=== PATIENT | male | born 1990 | race Caucasian/White ===

== ENCOUNTER 2016-06-15 20:12 | Emergency (ER) | payer SELFPAY ==
[~2016-06-15] VITALS: Ht 170.2 cm; Wt 58.6 kg
[~2016-06-15 20:12] MED LIST: IBUP-1050 PO; OXYC1TAB3 PO; SERT50TA PO
[2016-06-15 20:16] VITALS: TEMP 37.1; Ht 170.2 cm; Wt 58.6 kg
[2016-06-15] MEDS ORDERED: LORAZEPAM 2 MG/ML 1 ML VIAL IV STA (20:34)
[2016-06-15] MEDS ORDERED: KETOROLAC TROMETHAMINE 30 MG/ML VIAL IV STA (20:34)
[2016-06-15 21:06] LABS: BASO % 0.3 %; BASO ABS # 0.04 K/uL (0-0.2); EOS % 1.4 %; HEMATOCRIT 39.1 % (42-52); IG% 0.3 %; LYMPH % 19.7 %; LYMPH ABS # 2.37 K/uL (1.2-3.4); MEAN CELL VOLUME 69.8 fL (80-100); MEAN CORPUSCULAR HEMOGLOBIN 23.6 pg (25-34); MEAN CORPUSCULAR HGB CONC 33.8 g/dl (32-36); MEAN PLATELET VOLUME 8.5 fL (7.4-10.4); MONO % 8.3 %; PLATELET COUNT 364 K/uL (130-400); WHITE BLOOD COUNT 12.01 K/uL (4.8-10.8)
[2016-06-15 21:25] LABS: BUN/CREATININE RATIO 37.1 (10-20); CALCIUM 9.1 mg/dl (8.5-10.1); CREATININE 0.72 mg/dl (0.60-1.40); POTASSIUM 3.5 mmol/L (3.5-5.1)
[2016-06-15] MEDS ORDERED: SODIUM CHLORIDE 0.9% 1000ML 1,000 ML IV STA (21:27)
[2016-06-15 21:54] LABS: COMPLETE YES; MICROCYTOSIS PRESENT; POLYCHROMASIA 1+
--- NOTE | 2016-06-15 22:21 | DIAGNOSTIC IMAGING REPORT ---
MRI LUMBAR SPINE W/O CONTRAST CLINICAL HISTORY: Low back pain with hyperreflexia. TECHNIQUE: Sagittal and axial T1, T2 and STIR images were obtained. COMPARISON STUDY: No previous studies for comparison. OBSERVATIONS: The vertebral bodies and posterior elements appear intact. There is no abnormal bony signal present to suggest a marrow replacement process. There is minimal edema involving the anterior superior L5 endplate likely on a degenerative basis L1-2: No disc protrusions or extrusions. No evidence of spinal canal or neural foraminal compromise. L2-3: No disc protrusions or extrusions. No evidence of spinal canal or neural foraminal compromise. L3-4: No disc protrusions or extrusions. No evidence of spinal canal or neural foraminal compromise. L4-5: No disc protrusions or extrusions. No evidence of spinal canal or neural foraminal compromise. L5-S1: No disc protrusions or extrusions. No evidence of spinal canal or neural foraminal compromise. The conus medullaris and cauda equina appear normal. IMPRESSION: No disc herniations identified. No evidence of spinal or foraminal stenosis. Electronically signed by: Catarino Martinez M.D. 06/15/2016 10:20 PM Dictated Date/Time: 06/15/2016 10:17 PM
[2016-06-15 22:25] VITALS: BP 120/63; PULSE 87; O2SAT 97
[2016-06-15] MEDS ORDERED: CYCL10TA6 PO (22:38)
--- NOTE | 2016-06-15 22:39 | EMERGENCY ROOM VISIT NOTE ---
History First contact with patient: 20:21 Chief Complaint: BACK PAIN Stated Complaint: BACK PAIN History of Present Illness The patient is a 25 year old male who presents to the Emergency Room with complaints of right right-sided low back pain which drops into the floor at times. The patient states that he has had intermittent back pain since he sustained a crushing injury to his body when he was 17 years of age. The patient was seen here on May 11 for the same symptoms. The patient states that his symptoms never improved. The patient denies any pain radiating down his legs. The patient denies any loss of bowel or bladder control. The patient denies any urinary symptoms of frequency, urgency or dysuria. Review of Systems 10 system review was performed and was negative unless stated otherwise history of present illness. Past Medical/Surgical History Medical Problems: (1) No significant past medical history Surgical Problems: (1) No significant past surgical history Family History FH: cancer FH: heart disease FH: hypertension Social History Smoking Status: Never Smoker Alcohol Use: occasionally Drug Use: none Marital Status: in relationship Housing Status: lives with significant other Occupation Status: employed Current/Historical Medications Scheduled Sertraline HCl (Sertraline HCl), 50 MG PO DAILY Scheduled PRN Ibuprofen (Advil), 600-800 MG PO Q8 PRN for Pain Allergies Coded Allergies: Sulfa Drugs (Verified Allergy, Unknown, Hives and swelling., 06/15/16) Reported by PT. Physical Exam Vital Signs Date Time Temp Pulse Resp B/P Pulse Ox O2 Delivery O2 Flow Rate FiO2 06/15/16 22:25 87 18 120/63 97 Room Air 06/15/16 20:16 37.1 91 20 117/63 98 Room Air Physical Exam PHYSICAL EXAM: Vital Signs normal: Reviewed Nurse's notes and agree. GENERAL: 25-year-old white male appears very uncomfortable secondary to back pain. MENTAL STATUS: Alert and oriented 3. LUNGS: Clear to auscultation without wheezes rales or rhonchi. CARDIAC: Regular rate and rhythm without murmur. LUMBAR SPINE: No gross bony abnormality noted. Patient is nontender to palpation over the spinous processes. He is tender to palpation over the right paravertebral region, left side nontender. He has full range of motion of the lumbar spine with pain elicited with flexion, extension and right lateral bending. Muscle strength is 5 out of 5 bilateral lower extremities and symmetrical. NEURO: Patient is able to heel and toe walk without difficulty. Patient's bilateral patellar reflexes are 4+ with severe hyperreflexia.. Sensation is intact to pinprick bilateral lower extremities. Negative straight leg raise bilaterally. Medical Decision & Procedures ER Provider Diagnostic Interpretation: MRI LUMBAR SPINE W/O CONTRAST CLINICAL HISTORY: Low back pain with hyperreflexia. TECHNIQUE: Sagittal and axial T1, T2 and STIR images were obtained. COMPARISON STUDY: No previous studies for comparison. OBSERVATIONS: The vertebral bodies and posterior elements appear intact. There is no abnormal bony signal present to suggest a marrow replacement process. There is minimal edema involving the anterior superior L5 endplate likely on a degenerative basis L1-2: No disc protrusions or extrusions. No evidence of spinal canal or neural foraminal compromise. L2-3: No disc protrusions or extrusions. No evidence of spinal canal or neural foraminal compromise. L3-4: No disc protrusions or extrusions. No evidence of spinal canal or neural foraminal compromise. L4-5: No disc protrusions or extrusions. No evidence of spinal canal or neural foraminal compromise. L5-S1: No disc protrusions or extrusions. No evidence of spinal canal or neural foraminal compromise. The conus medullaris and cauda equina appear normal. IMPRESSION: No disc herniations identified. No evidence of spinal or foraminal stenosis. Electronically signed by: Catarino Martinez M.D. 06/15/2016 10:20 PM Laboratory Results 06/15/16 20:53 Red Blood Count 5.60, Mean Corpuscular Volume 69.8, Mean Corpuscular Hemoglobin 23.6, Mean Corpuscular Hemoglobin Concent 33.8, Mean Platelet Volume 8.5, Neutrophils (%) (Auto) 70.0, Lymphocytes (%) (Auto) 19.7, Monocytes (%) (Auto) 8.3, Eosinophils (%) (Auto) 1.4, Basophils (%) (Auto) 0.3, Neutrophils # (Auto) 8.39, Lymphocytes # (Auto) 2.37, Monocytes # (Auto) 1.00, Eosinophils # (Auto) 0.17, Basophils # (Auto) 0.04 06/15/16 20:53 Test 06/15/16 20:53 White Blood Count 12.01 K/uL (4.8-10.8) Red Blood Count 5.60 M/uL (4.7-6.1) Hemoglobin 13.2 g/dL (14.0-18.0) Hematocrit 39.1 % (42-52) Mean Corpuscular Volume 69.8 fL (80-100) Mean Corpuscular Hemoglobin 23.6 pg (25-34) Mean Corpuscular Hemoglobin Concent 33.8 g/dl (32-36) Platelet Count 364 K/uL (130-400) Mean Platelet Volume 8.5 fL (7.4-10.4) Neutrophils (%) (Auto) 70.0 % Lymphocytes (%) (Auto) 19.7 % Monocytes (%) (Auto) 8.3 % Eosinophils (%) (Auto) 1.4 % Basophils (%) (Auto) 0.3 % Neutrophils # (Auto) 8.39 K/uL (1.4-6.5) Lymphocytes # (Auto) 2.37 K/uL (1.2-3.4) Monocytes # (Auto) 1.00 K/uL (0.11-0.59) Eosinophils # (Auto) 0.17 K/uL (0-0.5) Basophils # (Auto) 0.04 K/uL (0-0.2) RDW Standard Deviation 39.0 fL (36.4-46.3) RDW Coefficient of Variation 15.3 % (11.5-14.5) Immature Granulocyte % (Auto) 0.3 % Immature Granulocyte # (Auto) 0.04 K/uL (0.00-0.02) Polychromasia 1+ Microcytosis PRESENT Erythrocyte Sedimentation Rate 73 mm/hr (0-14) Anion Gap 12.0 mmol/L (3-11) Est Creatinine Clear Calc Drug Dose 128.9 ml/min Estimated GFR () 149.2 Estimated GFR (Non- 128.7 BUN/Creatinine Ratio 37.1 (10-20) Calcium Level 9.1 mg/dl (8.5-10.1) Medications Administered Medications (Trade) Dose Ordered Sig/Barrett Route Start Time Stop Time Status Last Admin Dose Admin Lorazepam (Ativan Inj) 1 mg NOW STAT IV 06/15/16 20:34 06/15/16 20:38 DC 06/15/16 21:08 1 MG Ketorolac Tromethamine 30 mg 30 mg NOW STAT IV 06/15/16 20:34 06/15/16 20:38 DC 06/15/16 21:08 30 MG Sodium Chloride (Nss 1000ml) 1,000 ml @ 999 mls/hr Q1H1M STAT IV 06/15/16 21:27 06/15/16 22:27 DC 06/15/16 21:27 999 MLS/HR ED Course The patient was evaluated. The patient's EMR was reviewed. The patient had x- rays performed on May 11 without any acute findings. As there were no additional injuries I did not re-x-ray the patient's back. IV access was obtained. CBC and differential, renal profile and sedimentation rate was ordered. The patient was given Ativan 1 mg IV and Toradol 30 mg IV for pain and muscle spasms. The patient's labs are reviewed.. His BUN was elevated at 27 Patient's white count was slightly elevated at 12,000. The patient's hemoglobin and hematocrit were low. BUN was elevated at 27 therefore he was given 1 L normal saline wide-open. The patient was reevaluated was feeling better after receiving the Ativan and Toradol. His sedimentation rate was elevated at 72. An MRI of the lumbar spine was ordered and interpreted by the radiologist as above without any acute findings. The patient was informed of all findings and discharged home in stable condition with a Flexeril home pack. Medical Decision Differential diagnosis include spinal cord lesion, disc herniation, muscle spasm , kidney stone Impression Primary Impression: Spasm of back muscles Additional Impressions: Anemia, Mild dehydration Departure Information Dispostion Home / Self-Care Condition GOOD Prescriptions Cyclobenzaprine Hcl (FLEXERIL) 10 Mg Tab 10 MG PO TID for Muscle Spasms, #21 TAB Prov: Victorina Jones PA-C 06/15/16 Referrals Gosia Hay M.D. (MEDICAL) (PCP) Forms HOME CARE DOCUMENTATION FORM, IMPORTANT VISIT INFORMATION Patient Instructions A Signature Page, [employer] Additional Instructions Avoid heavy lifting as much as possible until symptoms have resolved. Follow proper lifting technique. Ibuprofen 600 mg every 6 hours with food for pain. Take Flexeril every 8 hours as needed[address] Do not drive while taking the Flexeril. Push fluids. Follow up with your family doctor for further evaluation of your anemia. If your symptoms worsen, return to ER.
[2016-06-15] MEDS ORDERED: FLEXERIL HOME PACK 10 MG VIAL PO ONE (22:45)
== END 2016-06-15 22:46 | disposition home or self-care (01) ==
LOC: C.EDB 20:12 → C.EDD 22:46
DX: M62.830 Muscle spasm of back (principal); E86.0 Dehydration; D64.9 Anemia, unspecified; Z79.899 Other long term (current) drug therapy; Z88.2 Allergy status to sulfonamides; Z80.9 Family history of malignant neoplasm, unspecified; Z82.49 Family history of ischemic heart disease and other diseases of the circulatory system

== ENCOUNTER 2016-12-26 19:23 | Emergency (ER) | payer SELFPAY ==
[~2016-12-26] VITALS: Ht 170.2 cm; Wt 59.6 kg
[~2016-12-26 19:23] MED LIST changes: -OXYC1TAB3 PO; -SERT50TA PO
[2016-12-26 19:31] VITALS: TEMP 36.7; Ht 170.2 cm; Wt 59.6 kg
[2016-12-26] MEDS ORDERED: ZLF/50 PO (20:39)
[2016-12-26] MEDS ORDERED: AMOX875T PO (20:43)
[2016-12-26] MEDS ORDERED: AMOXICILLIN/CLAVULANATE TAB 875 MG TAB PO ONE (20:45)
--- NOTE | 2016-12-26 20:45 | EMERGENCY ROOM VISIT NOTE ---
History First contact with patient: 19:44 Chief Complaint: INFECTION Stated Complaint: SORE ON BOTTOM Nursing Triage Summary: unable to assess states cyst on right butt cheek History of Present Illness The patient is a 26 year old male who presents to the Emergency Room with complaints of rectal pain. The patient states that he was on vacation last week and had diarrhea for several days. He states that he has had diarrhea before due to stress and felt like this was the cause. There was no blood in the stools. He had no vomiting. Diarrhea has since resolved, but the patient states that he has had some pain/pressure when he has bowel movements or wipes. He tried hydrocortisone cream without relief. He denies any history of rectal abscesses or hemorrhoids. He rates his discomfort an 8/10. Review of Systems A complete 10 point review of systems was reviewed with the patient with pertinent positives and negatives as per history of present illness. All else were negative. Past Medical/Surgical History Medical Problems: (1) No significant past medical history Surgical Problems: (1) No significant past surgical history Family History FH: cancer FH: heart disease FH: hypertension Social History Smoking Status: Never Smoker Alcohol Use: occasionally Drug Use: none Marital Status: in relationship Housing Status: lives with significant other Occupation Status: employed Current/Historical Medications Scheduled Amoxicillin & Pot Clavulanate (Augmentin 875-125 mg), 1 TAB PO BID Sertraline HCl (Sertraline HCl), 50 MG PO DAILY Allergies Coded Allergies: Sulfa Drugs (Verified Allergy, Unknown, Hives and swelling., 06/15/16) Reported by PT. Physical Exam Vital Signs Date Time Temp Pulse Resp B/P (MAP) Pulse Ox O2 Delivery O2 Flow Rate FiO2 12/26/16 21:10 77 18 127/78 99 12/26/16 19:31 36.7 88 18 134/67 97 Room Air Physical Exam VITALS: Vitals are noted on the nurse's note and reviewed by myself. Vital signs stable. GENERAL: This is a 26-year-old male, in no acute distress, nondiaphoretic, well- developed well-nourished. HEART: Regular rate and rhythm without murmurs gallops or rubs. LUNGS: Clear to auscultation bilaterally without wheezes, rales or rhonchi. ABDOMEN: Soft, nontender to palpation. RECTAL: No hemorrhoids noted. There is tenderness to palpation and mild erythema of the left perirectal area. There is no induration or evidence of abscess. NEURO: Patient was alert and oriented to person place and time. Medical Decision & Procedures Medications Administered Medications (Trade) Dose Ordered Sig/Barrett Route Start Time Stop Time Status Last Admin Dose Admin Amoxicillin/ Clavulanate Potassium (Augmentin Tab) 1,750 mg UD ONCE PO 12/26/16 20:45 12/26/16 20:46 DC 12/26/16 20:54 1,750 MG Medical Decision Differential diagnosis includes anal fissure, hemorrhoid, perirectal abscess, among others. The patient was evaluated as above. There is no evidence of perirectal abscess or hemorrhoid at this time. However, the patient does have some irritation and I'm concerned that he could be developing an infection. He will be placed on Augmentin and was instructed to observe the area closely and return here if the symptoms worsen. Otherwise, he should follow-up with his primary care provider. He verbalized understanding of my assessment and treatment plan was discharged home in good condition. Blood Pressure Screening: Patient was found to have a slightly elevated blood pressure due to circumstances. I do not believe that the patient requires hypertension monitoring. Medication reconciliation: I attest that I have personally reviewed the patient 's current medication list. Impression Primary Impression: Rectal pain Departure Information Dispostion Home / Self-Care Condition GOOD Prescriptions Amoxicillin & Pot Clavulanate (Augmentin 875-125 mg) 1 Tab Tab 1 TAB PO BID for 10 Days, #20 TAB Prov: Ekta Granger ., PAOLA 12/26/16 Referrals Gosia Hay M.D. (MEDICAL) (PCP) Patient Instructions My [facility] Additional Instructions You were prescribed Augmentin to be taken twice daily for a total of 10 days. This is an antibiotic. All antibiotics have the potential to cause diarrhea. Stop this medication and contact a medical provider if you were to develop any significant adverse side effects including: wheezing, shortness of breath, passing out, vomiting, or a diffuse rash. Always take antibiotics as directed and COMPLETE the ENTIRE course regardless of the improvement of your symptoms. You should begin taking a probiotic to prevent diarrhea. For pain control, you can use the following [id number] medicines (if >12 yo): - Regular strength (325mg/tab) Tylenol (acetaminophen) 2 tabs every 4-6 hours as needed. Do not exceed 12 tablets in a 24 hour period. Avoid taking more than 4 grams (4000 mg) of Tylenol per day. This includes any other sources of acetaminophen you may take on a regular basis. - Regular strength (200 mg/tab) Advil (ibuprofen) 1-2 tabs every 4-6 hours as needed. Do not exceed a dose of 3200 mg per day. Follow-up with your primary care provider this week for a recheck. Return to the emergency department with worsening swelling, redness, fevers or any other new/concerning symptoms.
[2016-12-26 21:10] VITALS: BP 127/78; PULSE 77; O2SAT 99
== END 2016-12-26 20:50 | disposition home or self-care (01) ==
LOC: C.EDB 19:24 → C.EDD 20:50
DX: K62.89 Other specified diseases of anus and rectum (principal); Z82.49 Family history of ischemic heart disease and other diseases of the circulatory system

== ENCOUNTER 2017-05-03 15:44 | Emergency (ER) | payer SELFPAY ==
[~2017-05-03] VITALS: Ht 170.2 cm; Wt 58.2 kg
[2017-05-03 15:48] VITALS: TEMP 36.7; Ht 170.2 cm; Wt 58.2 kg
[2017-05-03] MEDS ORDERED: SODIUM CHLORIDE 0.9% 1000ML 1,000 ML IV STA (16:17)
--- NOTE | 2017-05-03 16:26 | EMERGENCY ROOM VISIT NOTE ---
History Report prepared by Chio: Pavan Pérez Under the Supervision of: Dr. Tad Chou M.D. First contact with patient: 16:15 Chief Complaint: DIARRHEA Stated Complaint: HAS A ANAL FISTULA- UPCOMING SURG.. WEAK, DIARRHEA Nursing Triage Summary: pt reports weakness x1 week had fever 2 days ago. diarrhea since last night History of Present Illness The patient is a 26 year old male who presents to the Emergency Room with complaints of diarrhea and low back pain. The patient reports he has had worsening diarrhea for the past few days in the setting of 2 weeks of diarrhea and endorses low grade fevers and body aches. The patient reports no resolution of diarrhea, thus prompting this visit. The patient reports of a similar episode 2 weeks ago and was evaluated for generalized weakness and diarrhea. He has a history of a anal fistula and is scheduled for surgery next week. He recently stopped antibiotics (Augmentin and Flagyl) which were recently prescribed for his fistula because he felt his diarrhea had increased with this. The patient self-administered 2 immodium with some improvement. He endorses fevers, chills, decreased PO intake, and blood in his stool. He denies abdominal pain. Of note, he reports a family history of colitis but he has never himself been diagnosed with IBD. Source of History: patient Onset: 2 weeks ago Position: back (low back), other (rectum) Quality: ache Timing: constant Associated Symptoms: + fevers, + chills, + back pain, + diarrhea, + weakness , No nausea, No vomiting, No abdominal pain Review of Systems See HPI for pertinent positives and negatives. A total of ten systems were reviewed and were otherwise negative. Past Medical & Surgical Medical Problems: (1) No significant past medical history Surgical Problems: (1) No significant past surgical history Family History FH: cancer FH: heart disease FH: hypertension Social History Smoking Status: Never Smoker Alcohol Use: occasionally Drug Use: none Marital Status: in relationship Housing Status: lives with significant other Occupation Status: employed Current/Historical Medications Scheduled Prednisone (Prednisone), 1 TAB PO DAILY Durable Medical Equipment [Stool] Allergies Coded Allergies: Sulfa Drugs (Verified Allergy, Unknown, Hives and swelling., 04/16/17) Reported by PT. Physical Exam Vital Signs Date Time Temp Pulse Resp B/P (MAP) Pulse Ox O2 Delivery O2 Flow Rate FiO2 05/03/17 20:44 102 132/69 99 05/03/17 18:38 105 20 124/69 97 Room Air 05/03/17 16:46 105 05/03/17 16:44 101 24 126/59 99 Room Air 05/03/17 15:48 36.7 105 18 120/67 98 Room Air Physical Exam GENERAL: Awake, alert, well-appearing, in no distress HENT: Normocephalic, atraumatic. Oropharynx unremarkable. EYES: Normal conjunctiva. Sclera non-icteric. NECK: Supple. No nuchal rigidity. FROM. No JVD. RESPIRATORY: Clear to auscultation. CARDIAC: Regular rate, normal rhythm. Extremities warm and well perfused. Pulses equal. ABDOMEN: Soft, non-distended. No tenderness to palpation. No rebound or guarding. No masses. RECTAL: Anal fistula at the 5 o'clock position with mild tenderness. Brown mucousy stool with scant blood. Guaiac positive. MUSCULOSKELETAL: Chest examination reveals no tenderness. The back is symmetrical on inspection without obvious abnormality. There is no CVA tenderness to palpation. No joint edema. LOWER EXTREMITIES: Calves are equal size bilaterally and non-tender. No edema. No discoloration. NEURO: Normal sensorium. No sensory or motor deficits noted. SKIN: No rash or jaundice noted. Medical Decision & Procedures ER Provider Diagnostic Interpretation: Radiology results as stated below per my review and radiologist interpretation: CT ABD/PELVIS IV CONTRAST ONLY CLINICAL HISTORY: Abdominal pain and diarrhea COMPARISON STUDY: None. TECHNIQUE: Following the IV administration of 116 mL of Optiray-320, CT scan of the abdomen and pelvis was performed from the lung bases to the proximal femurs. Images are reviewed in the axial, sagittal, and coronal planes. IV contrast was administered without complication. A dose lowering technique was utilized adhering to the principles of ALARA. CT DOSE: 254.93 mGy.cm FINDINGS: Lower chest: There are minimal dependent basilar atelectatic changes Liver: The contrast-enhanced liver is normal in size, contour, and attenuation. There is no intrahepatic biliary ductal dilatation. The hepatic veins and portal veins are patent. Gallbladder: Unremarkable. Spleen: Normal in size and attenuation. Pancreas: Unremarkable. Adrenal glands: Unremarkable. Kidneys: There is symmetric renal cortical enhancement. The kidneys are normal in size without hydronephrosis. Bowel: Evaluation the bowel is limited given the lack of oral contrast and the paucity of intra-abdominal fat. There are no transition zones indicate bowel obstruction. There is no evidence of acute diverticulitis. The appendix is difficult to visualize. There are no findings to indicate acute appendicitis. There is suspected mild cecal and rectal wall thickening. This may indicate a colitis. There is formed fecal material within nondilated pelvic small bowel loops. Peritoneum: There is no intraperitoneal free air or abdominal ascites. Vasculature: The abdominal aorta is normal in course and caliber. Adenopathy: None. Pelvic viscera: The bladder, and pelvic viscera are unremarkable. Skeletal structures: There are SI joint erosive changes consistent with a sacroiliitis. This has an association with inflammatory bowel disease. IMPRESSION: 1. No evidence of bowel obstruction. No evidence of free air 2. Limited evaluation of the bowel given the paucity of abdominal fat and the absence of oral contrast 3. Suspected bowel wall thickening of the cecum and rectum, consistent with a colitis 4. Sacroiliitis. It should be noted this has an association with inflammatory bowel disease. Electronically signed by: Catarino Martinez M.D. 05/03/2017 6:27 PM Laboratory Results 05/03/17 16:40 Red Blood Count 5.93, Mean Corpuscular Volume 69.1, Mean Corpuscular Hemoglobin 22.6, Mean Corpuscular Hemoglobin Concent 32.7, Mean Platelet Volume 8.3, Neutrophils (%) (Auto) 65.1, Lymphocytes (%) (Auto) 19.6, Monocytes (%) (Auto) 13.9, Eosinophils (%) (Auto) 1.1, Basophils (%) (Auto) 0.2, Neutrophils # (Auto ) 5.42, Lymphocytes # (Auto) 1.63, Monocytes # (Auto) 1.16, Eosinophils # (Auto ) 0.09, Basophils # (Auto) 0.02 05/03/17 16:40 Test 05/03/17 16:40 05/03/17 18:36 White Blood Count 8.33 K/uL (4.8-10.8) Red Blood Count 5.93 M/uL (4.7-6.1) Hemoglobin 13.4 g/dL (14.0-18.0) Hematocrit 41.0 % (42-52) Mean Corpuscular Volume 69.1 fL (80-100) Mean Corpuscular Hemoglobin 22.6 pg (25-34) Mean Corpuscular Hemoglobin Concent 32.7 g/dl (32-36) Platelet Count 399 K/uL (130-400) Mean Platelet Volume 8.3 fL (7.4-10.4) Neutrophils (%) (Auto) 65.1 % Lymphocytes (%) (Auto) 19.6 % Monocytes (%) (Auto) 13.9 % Eosinophils (%) (Auto) 1.1 % Basophils (%) (Auto) 0.2 % Neutrophils # (Auto) 5.42 K/uL (1.4-6.5) Lymphocytes # (Auto) 1.63 K/uL (1.2-3.4) Monocytes # (Auto) 1.16 K/uL (0.11-0.59) Eosinophils # (Auto) 0.09 K/uL (0-0.5) Basophils # (Auto) 0.02 K/uL (0-0.2) RDW Standard Deviation 45.2 fL (36.4-46.3) RDW Coefficient of Variation 18.0 % (11.5-14.5) Immature Granulocyte % (Auto) 0.1 % Immature Granulocyte # (Auto) 0.01 K/uL (0.00-0.02) Microcytosis PRESENT Spherocytes 1+ Ovalocytes 1+ Erythrocyte Sedimentation Rate > 90 mm/hr (0-14) Anion Gap 6.0 mmol/L (3-11) Est Creatinine Clear Calc Drug Dose 111.4 ml/min Estimated GFR () 140.5 Estimated GFR (Non- 121.2 BUN/Creatinine Ratio 21.4 (10-20) Lactic Acid Level 1.2 mmol/L (0.4-2.0) Calcium Level 9.4 mg/dl (8.5-10.1) Total Bilirubin 0.3 mg/dl (0.2-1) Direct Bilirubin 0.1 mg/dl (0-0.2) Aspartate Amino Transf (AST/SGOT) 13 U/L (15-37) Alanine Aminotransferase (ALT/SGPT) 16 U/L (12-78) Alkaline Phosphatase 76 U/L (45-117) C-Reactive Protein 13.40 mg/dl (0-0.29) Total Protein 8.7 gm/dl (6.4-8.2) Albumin 3.9 gm/dl (3.4-5.0) Lipase 109 U/L (73-393) Urine Color YELLOW Urine Appearance CLEAR (CLEAR) Urine pH 5.0 (4.5-7.5) Urine Specific [place] 1.024 (1.000-1.030) Urine Protein NEG (NEG) Urine Glucose (UA) NEG (NEG) Urine Ketones 1+ (NEG) Urine Occult Blood NEG (NEG) Urine Nitrite NEG (NEG) Urine Bilirubin NEG (NEG) Urine Urobilinogen NEG (NEG) Urine Leukocyte Esterase NEG (NEG) Laboratory results reviewed by me Medications Administered Medications (Trade) Dose Ordered Sig/Barrett Route Start Time Stop Time Status Last Admin Dose Admin Sodium Chloride 1,000 ml @ 999 mls/hr Q1H1M STAT IV 05/03/17 16:17 05/03/17 17:17 DC 05/03/17 16:17 999 MLS/HR Prednisone (PredniSONE TAB) 20 mg NOW STAT PO 05/03/17 19:54 05/03/17 19:56 DC 05/03/17 20:04 20 MG ED Course 1615: The patient was evaluated in room B6. A complete history and physical exam was performed. 1617: Sodium Chloride 1 ml @ 999 mls/hr IV 1815: Optiray 320, 116 ml, IV 1934: I spoke with the patient and he has not been able to produce a bowel movement. 1946: I spoke with Dr. Silva who agreed that patient should be given Prednisone as well as cups for his stool. He will call the office tomorrow about a follow up appointment for 05/07/2017. 1953: Prednisone Tab 20 mg PO. 2023: I reevaluated the patient. Discussed results and discharge instructions: The patient verbalized understanding and agreement. The patient is ready for discharge. Medical Decision I reviewed the patient's past medical history, medications, and the nursing notes as described above. The patient's presentation and history were concerning for C.Diff colitis, IBD, and gastroenteritis, diverticulitis The patient is a 26 y/o gentleman who presents to the ED with worsening diarrhea over the past few days in the setting of 2 weeks of diarrhea per HPI. On arrival the patient is well appearing, NAD, AFVSS. Rectal exam with brown stool with mucous and scant blood, guaiac positive. Abd soft, NT/ND. Labs notable for ESR > 90 and CRP 13.4 . Labs otherwise unremarkable with WBC wnl and HCT 40s. CT showing colitis with associated sacroiliitis c/w with IBD. Case was d/w GI, Dr. Silva, who recommends beginning Prednisone 20 mg daily and to provide specimen cups so patient may deliver stool studies when he is able to have a BM. Patient will call office tomorrow to arrange appointment for Sunday. Patient will also update his surgeon regarding recent findings. Findings and plan for follow-up reviewed with patient. Patient agreeable and d/c'd per discharge instructions. Consults Time Called: 1946 Consulting Physician: Dr. Silva - GI Returned Call: [address] Silva who agreed that the patient should be given Prednisone as well as cups for his stool. He will call the office tomorrow about a follow up appointment for 05/07/2017. Impression Primary Impression: Colitis Additional Impression: Sacroiliitis Scribe Attestation The scribe's documentation has been prepared under my direction and personally reviewed by me in its entirety. I confirm that the note above accurately reflects all work, treatment, procedures, and medical decision making performed by me. Departure Information Dispostion Home / Self-Care Prescriptions [Stool] No Conflict Check Stool Studies: 1. Cdiff toxin B Gene, stool 2. Stool Culture 3. Gram Stain, stool 4. Giardia Ag, stool 5. Gryptosporidium Ag, stool 6. Salmonella, stool 7. Shigella, stool 8. Ecoli O157:H7, stool 9. Ova and Parasites, stool Prov: Tad Chou M.D. 05/03/17 Prednisone (Prednisone) 20 Mg Tab 1 TAB PO DAILY for 14 Days, #14 TAB Prov: Tad Chou M.D. 05/03/17 Referrals No Doctor, Assigned (PCP) Shaheen Silva M.D. Patient Instructions ED Colitis Ulcerative, ED Sacroiliitis, My [facility] Additional Instructions Please follow up with Gastroenterology, Dr. Silva, by calling the office tomorrow to arrange an appointment for Sunday. You were found to have a colitis and sacroiliitis, which together are highly suspicious for ulcerative colitis. Otherwise, your exam, CT scan, and lab results did not show signs of an emergent condition at this time. Prednisone as directed. You were given specimen containers, that if you have a bowel movement, you should bring to the laboratory or to emergency department to send for testing as specified on your prescription. Return to the emergency department for worsening symptoms as described in the accompanying instructions. Problem Qualifiers
[2017-05-03 16:53] LABS: BASO % 0.2 %; BASO ABS # 0.02 K/uL (0-0.2); EOS % 1.1 %; IG% 0.1 %; LYMPH % 19.6 %; LYMPH ABS # 1.63 K/uL (1.2-3.4); MEAN CELL VOLUME 69.1 fL (80-100); MEAN CORPUSCULAR HEMOGLOBIN 22.6 pg (25-34); MEAN CORPUSCULAR HGB CONC 32.7 g/dl (32-36); MEAN PLATELET VOLUME 8.3 fL (7.4-10.4); MONO % 13.9 %; NEUT % 65.1 %; PLATELET COUNT 399 K/uL (130-400); RED BLOOD COUNT 5.93 M/uL (4.7-6.1); WHITE BLOOD COUNT 8.33 K/uL (4.8-10.8)
[2017-05-03 17:12] LABS: BUN/CREATININE RATIO 21.4 (10-20); C-REACTIVE PROTEIN 13.4 mg/dl (0-0.29); CALCIUM 9.4 mg/dl (8.5-10.1); CREATININE 0.82 mg/dl (0.60-1.40)
[2017-05-03 17:38] LABS: COMPLETE YES; MICROCYTOSIS PRESENT; OVALOCYTES 1+; SPHEROCYTE 1+
[2017-05-03] MEDS ORDERED: OPTIRAY 320 IV PRN (18:15)
--- NOTE | 2017-05-03 18:28 | DIAGNOSTIC IMAGING REPORT ---
CT ABD/PELVIS IV CONTRAST ONLY CLINICAL HISTORY: Abdominal pain and diarrhea COMPARISON STUDY: None. TECHNIQUE: Following the IV administration of 116 mL of Optiray-320, CT scan of the abdomen and pelvis was performed from the lung bases to the proximal femurs. Images are reviewed in the axial, sagittal, and coronal planes. IV contrast was administered without complication. A dose lowering technique was utilized adhering to the principles of ALARA. CT DOSE: 254.93 mGy.cm FINDINGS: Lower chest: There are minimal dependent basilar atelectatic changes Liver: The contrast-enhanced liver is normal in size, contour, and attenuation. There is no intrahepatic biliary ductal dilatation. The hepatic veins and portal veins are patent. Gallbladder: Unremarkable. Spleen: Normal in size and attenuation. Pancreas: Unremarkable. Adrenal glands: Unremarkable. Kidneys: There is symmetric renal cortical enhancement. The kidneys are normal in size without hydronephrosis. Bowel: Evaluation the bowel is limited given the lack of oral contrast and the paucity of intra-abdominal fat. There are no transition zones indicate bowel obstruction. There is no evidence of acute diverticulitis. The appendix is difficult to visualize. There are no findings to indicate acute appendicitis. There is suspected mild cecal and rectal wall thickening. This may indicate a colitis. There is formed fecal material within nondilated pelvic small bowel loops. Peritoneum: There is no intraperitoneal free air or abdominal ascites. Vasculature: The abdominal aorta is normal in course and caliber. Adenopathy: None. Pelvic viscera: The bladder, and pelvic viscera are unremarkable. Skeletal structures: There are SI joint erosive changes consistent with a sacroiliitis. This has an association with inflammatory bowel disease. IMPRESSION: 1. No evidence of bowel obstruction. No evidence of free air 2. Limited evaluation of the bowel given the paucity of abdominal fat and the absence of oral contrast 3. Suspected bowel wall thickening of the cecum and rectum, consistent with a colitis 4. Sacroiliitis. It should be noted this has an association with inflammatory bowel disease. Electronically signed by: Catarino Martinez M.D. 05/03/2017 6:27 PM Dictated Date/Time: 05/03/2017 6:19 PM
[2017-05-03 18:58] LABS: URINE APPEARANCE CLEAR (CLEAR); URINE BILIRUBIN NEG (NEG); URINE COLOR YELLOW; URINE NITRITE NEG (NEG); URINE SPECIFIC GRAVITY 1.024 (1.000-1.030); UROBILINOGEN NEG (NEG); ZZUR CULT IF INDIC CLEAN CATCH NO
[2017-05-03 19:01] LABS: MANUAL MICROSCOPIC REQUIRED? NO; REVIEW REQ? NO
[2017-05-03] MEDS ORDERED: PRED20TA PO (20:07)
[2017-05-03] MEDS ORDERED: Stool (20:16)
[2017-05-03 20:44] VITALS: BP 132/69; PULSE 102; O2SAT 99
== END 2017-05-03 20:45 | disposition home or self-care (01) ==
LOC: C.EDB 15:46
DX: K52.9 Noninfective gastroenteritis and colitis, unspecified (principal); M46.1 Sacroiliitis, not elsewhere classified; Z82.49 Family history of ischemic heart disease and other diseases of the circulatory system

== ENCOUNTER → 2017-05-04 | Outpatient (CLI) | payer OTHER ==
[~2017-05-04] MED LIST changes: -IBUP-1050 PO; +LCTX PO; +NF1094 PO; +PRED20TA PO; +Stool
[2017-05-09 09:35] LABS: O&P SOURCE OTHER-STOOL
== END | disposition home or self-care (01) ==
LOC: C.LAB 11:07
PROVIDERS: ATTEND Emergency Medicine
DX: R19.7 Diarrhea, unspecified (principal)

== ENCOUNTER 2017-05-05 15:46 | Inpatient (IN) | payer OTHER ==
[~2017-05-05] VITALS: Ht 170.2 cm; Wt 57.0 kg
[~2017-05-05 15:46] MED LIST changes: -LCTX PO; -NF1094 PO
[2017-05-05] MEDS ORDERED: ONDANSETRON INJ 2 MG/ML 2 ML VIAL IV STA (16:06)
[2017-05-05] MEDS ORDERED: VANCOMYCIN HCL 250 MG/5 ML SOLN PO STA (16:06)
[2017-05-05] MEDS ORDERED: MoRPHine SULFATE 4 MG/ML 1 ML CARP\\VIAL IV PRN (16:15)
[2017-05-05] MEDS ORDERED: SODIUM CHLORIDE 0.9% 1000ML 1,000 ML IV ONE (16:15)
[2017-05-05 16:37] LABS: BASO % 0.2 %; BASO ABS # 0.02 K/uL (0-0.2); EOS % 0.7 %; HEMATOCRIT 37.5 % (42-52); IG% 0.2 %; LYMPH % 23.2 %; LYMPH ABS # 2.06 K/uL (1.2-3.4); MEAN CELL VOLUME 68.6 fL (80-100); MEAN CORPUSCULAR HEMOGLOBIN 22.3 pg (25-34); MEAN CORPUSCULAR HGB CONC 32.5 g/dl (32-36); MEAN PLATELET VOLUME 8.2 fL (7.4-10.4); MONO % 16.1 %; NEUT % 59.6 %; PLATELET COUNT 351 K/uL (130-400); RED BLOOD COUNT 5.47 M/uL (4.7-6.1); WHITE BLOOD COUNT 8.89 K/uL (4.8-10.8)
[2017-05-05 16:55] LABS: BUN/CREATININE RATIO 17.5 (10-20); CALCIUM 9.3 mg/dl (8.5-10.1); CREATININE 0.84 mg/dl (0.60-1.40); MAGNESIUM 1.9 mg/dl (1.8-2.4); POTASSIUM 3.8 mmol/L (3.5-5.1)
[2017-05-05 16:58] LABS: ALB/GLOB RATIO 0.7 (0.9-2)
[2017-05-05 17:02] LABS: COMPLETE YES; MICROCYTOSIS PRESENT
[2017-05-05 17:32] LABS: LYME DISEASE AB IGG NEG (NEG); LYME DISEASE AB IGM NEG (NEG)
--- NOTE | 2017-05-05 17:58 | DIAGNOSTIC IMAGING REPORT ---
L KNEE 3 VIEWS CLINICAL HISTORY: Left knee swelling. Possible joint effusion. COMPARISON: Left knee radiographs May 30, 2014. FINDINGS: Alignment of the left knee is anatomic. There is a moderate left knee joint effusion without lipohemarthrosis. No fracture or suspicious lesion is present. IMPRESSION: 1. Moderate-sized left knee joint effusion. 2. No osseous abnormality of the left knee. Electronically signed by: Hayder Pugh M.D. 05/05/2017 5:56 PM Dictated Date/Time: 05/05/2017 5:55 PM
--- NOTE | 2017-05-05 17:59 | DIAGNOSTIC IMAGING REPORT ---
PA CHEST RADIOGRAPH AND UPRIGHT AND SUPINE AP RADIOGRAPHS OF THE ABDOMEN CLINICAL HISTORY: Abdominal pain. C. Difficile colitis. Possible megacolon. COMPARISON STUDY: CT of the abdomen and pelvis May 03, 2017 and chest radiograph June 28, 2013. FINDINGS: Lung volumes are normal. Lungs are clear. No pneumothorax or pleural effusion is present. Pulmonary vascularity is normal. Cardiomediastinal silhouette is normal. There is no free air. The bowel gas pattern is normal. No colonic distention is identified by radiography. IMPRESSION: 1. No free air or evidence of bowel obstruction. No colonic dilatation by radiography. 2. No acute cardiopulmonary findings. Electronically signed by: Hayder Pugh M.D. 05/05/2017 5:58 PM Dictated Date/Time: 05/05/2017 5:56 PM
--- NOTE | 2017-05-05 18:08 | EMERGENCY ROOM VISIT NOTE ---
History First contact with patient: 15:54 Chief Complaint: WEAKNESS Stated Complaint: HAS COLITIS, SYMPTOMS ARE GETTING WORSE, FEVER Nursing Triage Summary: Patient presents to triage via wheelchair, states "I have a fistula on my bottom that is draining pus. I am supposed to have surgery on May 11. I can't get out of bed. My legs, knees and back hurt. I have a lot of neck pain, I think I slept on it wrong. I feel drained. I was here two nights ago and was diagnosed with colitis. They gave me prednisone." Patient is C.Diff positive! History of Present Illness The patient is a 26 year old male who presents to the Emergency Room with complaints of worsening body aches, abdominal pain and diarrhea over the last 2 weeks. The patient was seen in the emergency department 2 days ago with a main complaint of diarrhea and back pain. He was diagnosed with possible colitis. He was started on prednisone. The patient was unable to provide a stool sample at that time. He brought 1 to the hospital yesterday. It is positive for C. difficile colitis. The patient reports no appetite. He feels extremely weak. He has joint pain in his back, hips and particularly his left knee. His fever was 101F at home. He denies any nausea. He was on antibiotics recently, Augmentin and Flagyl, for upcoming surgery on his anal fistula. Review of Systems 10 system review performed and negative unless noted in HPI or below Past Medical/Surgical History Medical Problems: (1) C. difficile colitis (2) No significant past medical history Surgical Problems: (1) No significant past surgical history Family History FH: cancer FH: heart disease FH: hypertension Social History Smoking Status: Never Smoker Alcohol Use: occasionally Drug Use: none Marital Status: in relationship Housing Status: lives with significant other Occupation Status: employed Current/Historical Medications Scheduled Prednisone (Prednisone), 1 TAB PO DAILY Allergies Coded Allergies: Sulfa Drugs (Verified Allergy, Unknown, Hives and swelling., 05/05/17) Reported by PT. Physical Exam Vital Signs Date Time Temp Pulse Resp B/P (MAP) Pulse Ox O2 Delivery O2 Flow Rate FiO2 05/05/17 18:49 99 14 125/68 97 Room Air 05/05/17 17:47 97 16 122/64 98 Room Air 05/05/17 16:56 98 16 131/75 95 Room Air 05/05/17 15:48 37.2 103 18 123/75 97 Room Air Physical Exam GENERAL: 26-year-old male, acutely ill in appearance SKIN: The skin was without rashes, erythema, edema, or bruising. HEAD: Normocephalic atraumatic. MOUTH: Mucous membranes NECK: Supple without nuchal rigidity. Cervical spine is nontender. No JVD. HEART: , Regular rhythm without murmurs gallops or rubs. LUNGS: Clear to auscultation bilaterally without wheezes, rales or rhonchi. No accessory muscle use. ABDOMEN: Positive bowel sounds x 4.Soft, tenderness to palpation in the epigastric region without organomegaly. No guarding or rebound tenderness. MUSCULOSKELETAL: Left knee effusion noted. Full flexion and extension of the knee. No warmth or erythema appreciated. Strength 5/5 throughout. NEURO: Patient was alert and oriented to person place and time. Normal sensation to touch. No focal neurological deficits. Medical Decision & Procedures ER Provider Diagnostic Interpretation: knee xray L KNEE 3 VIEWS CLINICAL HISTORY: Left knee swelling. Possible joint effusion. COMPARISON: Left knee radiographs May 30, 2014. FINDINGS: Alignment of the left knee is anatomic. There is a moderate left knee joint effusion without lipohemarthrosis. No fracture or suspicious lesion is present. IMPRESSION: 1. Moderate-sized left knee joint effusion. 2. No osseous abnormality of the left knee. Electronically signed by: Hayder Pugh M.D. 05/05/2017 5:56 PM Dictated Date/Time: 05/05/2017 5:55 PM The status of this report is Signed. Draft = Not yet reviewed or approved by Radiologist. Signed = Reviewed and approved by Radiologist. Abdominal x-rays IMPRESSION: 1. No free air or evidence of bowel obstruction. No colonic dilatation by radiography. 2. No acute cardiopulmonary findings. Electronically signed by: Hayder Pugh M.D. 05/05/2017 5:58 PM Dictated Date/Time: 05/05/2017 5:56 PM The status of this report is Signed. Draft = Not yet reviewed or approved by Radiologist. Signed = Reviewed and approved by Radiologist. Laboratory Results 05/05/17 16:20 Red Blood Count 5.47, Mean Corpuscular Volume 68.6, Mean Corpuscular Hemoglobin 22.3, Mean Corpuscular Hemoglobin Concent 32.5, Mean Platelet Volume 8.2, Neutrophils (%) (Auto) 59.6, Lymphocytes (%) (Auto) 23.2, Monocytes (%) (Auto) 16.1, Eosinophils (%) (Auto) 0.7, Basophils (%) (Auto) 0.2, Neutrophils # (Auto ) 5.30, Lymphocytes # (Auto) 2.06, Monocytes # (Auto) 1.43, Eosinophils # (Auto ) 0.06, Basophils # (Auto) 0.02 05/05/17 16:20 Test 05/05/17 16:20 White Blood Count 8.89 K/uL (4.8-10.8) Red Blood Count 5.47 M/uL (4.7-6.1) Hemoglobin 12.2 g/dL (14.0-18.0) Hematocrit 37.5 % (42-52) Mean Corpuscular Volume 68.6 fL (80-100) Mean Corpuscular Hemoglobin 22.3 pg (25-34) Mean Corpuscular Hemoglobin Concent 32.5 g/dl (32-36) Platelet Count 351 K/uL (130-400) Mean Platelet Volume 8.2 fL (7.4-10.4) Neutrophils (%) (Auto) 59.6 % Lymphocytes (%) (Auto) 23.2 % Monocytes (%) (Auto) 16.1 % Eosinophils (%) (Auto) 0.7 % Basophils (%) (Auto) 0.2 % Neutrophils # (Auto) 5.30 K/uL (1.4-6.5) Lymphocytes # (Auto) 2.06 K/uL (1.2-3.4) Monocytes # (Auto) 1.43 K/uL (0.11-0.59) Eosinophils # (Auto) 0.06 K/uL (0-0.5) Basophils # (Auto) 0.02 K/uL (0-0.2) RDW Standard Deviation 44.6 fL (36.4-46.3) RDW Coefficient of Variation 17.9 % (11.5-14.5) Immature Granulocyte % (Auto) 0.2 % Immature Granulocyte # (Auto) 0.02 K/uL (0.00-0.02) Microcytosis PRESENT Anion Gap 10.0 mmol/L (3-11) Est Creatinine Clear Calc Drug Dose 106.5 ml/min Estimated GFR () 139.1 Estimated GFR (Non- 120.0 BUN/Creatinine Ratio 17.5 (10-20) Calcium Level 9.3 mg/dl (8.5-10.1) Magnesium Level 1.9 mg/dl (1.8-2.4) Total Bilirubin 0.4 mg/dl (0.2-1) Aspartate Amino Transf (AST/SGOT) 9 U/L (15-37) Alanine Aminotransferase (ALT/SGPT) 14 U/L (12-78) Alkaline Phosphatase 67 U/L (45-117) Total Protein 8.4 gm/dl (6.4-8.2) Albumin 3.4 gm/dl (3.4-5.0) Globulin 5.0 gm/dl (2.5-4.0) Albumin/Globulin Ratio 0.7 (0.9-2) Lyme Disease IgG Antibody NEG (NEG) Lyme Disease IgM Antibody NEG (NEG) Medications Administered Medications (Trade) Dose Ordered Sig/Barrett Route Start Time Stop Time Status Last Admin Dose Admin Sodium Chloride 1,000 ml @ 999 mls/hr Q1H1M ONCE IV 05/05/17 16:15 05/05/17 17:15 DC 05/05/17 16:49 999 MLS/HR Morphine Sulfate (MoRPHine SULFATE INJ) 4 mg Q1H PRN IV 05/05/17 16:15 05/05/17 21:03 DC 05/05/17 16:47 4 MG Ondansetron HCl (Zofran Inj) 4 mg NOW STAT IV 05/05/17 16:06 05/05/17 16:10 DC 05/05/17 16:47 4 MG Vancomycin HCl (Vancomycin Oral Soln) 250 mg ONE STAT PO 05/05/17 16:06 05/05/17 16:10 DC 05/05/17 16:48 250 MG Acetaminophen (Tylenol Tab) 650 mg Q4H PRN PO 05/05/17 20:00 06/04/17 19:59 05/05/17 21:40 650 MG ED Course Patient was seen and examined Vital signs including blood pressure were reviewed medications list was verified with patient Labs were obtained, and a saline lock was established He was medicated with morphine and Zofran. He was hydrated with 1 L of normal saline. He was given 1 dose of vancomycin by mouth 250 mg I reevaluated the patient. He had minimal symptomatically. We discussed his results. He voiced understanding. The case was also discussed with my supervising physician, who is in agreement with my plan I [facility] who is in agreement to keep the patient for further workup and treatment Medical Decision Differential diagnosis: C. difficile colitis, inflammatory bowel disease, viral GI illness, Lyme disease this patient is a 26-year-old male that returns to the emergency department with complaints of significant weakness, diarrhea and fever. The patient was in the emergency department 2 days ago. A CAT scan was performed consistent with colitis. The patient also has a confirmation of C. difficile colitis. The patient was started on oral vancomycin. He does appear extremely dehydrated. Even though his labs are unremarkable, I do not feel like he will do well if he is discharged home. I believe he likely needs IV hydration, continued antibiotics and pain medication. The patient and the patient's family are in agreement with this plan. Of note, the patient also was complaining of intermittent swelling of the left knee due to an injury over a year ago. He did have some swelling on exam. X- rays confirmed a knee effusion. I ordered a Lyme screen, which was negative. I did not suspect a septic joint and it was not giving him a significant amount of pain; therefore, I did not perform an arthrocentesis. This information was passed along to the hospitalist group. This chart was completed in part utilizing [employer] Speech Voice Recognition software. Attempts were made to minimize the grammatical errors, random word insertions, pronoun errors and incomplete sentences. Any formal questions or concerns about the content, text or information contained within the body of this dictation should be directly addressed to the provider for clarification. Consults Consulting Physician: Caridad rodrigezist Impression Primary Impression: C. difficile colitis Departure Information Referrals Gosia Hay M.D. (MEDICAL) (PCP) Patient Instructions [facility]
[2017-05-05] MEDS ORDERED: ONDANSETRON INJ 2 MG/ML 2 ML VIAL IV PRN (20:00)
[2017-05-05] MEDS ORDERED: ALUMINUM/MAGNESIUM/SIMETH (MAALOX MAX) 30 ML UDC PO PRN (20:00)
[2017-05-05] MEDS ORDERED: MAGNESIUM HYDROXIDE SUSP 30 ML UDC PO PRN (20:00)
[2017-05-05 20:48] VITALS: BP 130/72; PULSE 99; TEMP 37.6; O2SAT 98; Ht 170.2 cm; Wt 57.0 kg
[2017-05-05] MEDS: VANCOMYCIN HCL 250 MG/5 ML SOLN PO SCH (21:38)
[2017-05-05] MEDS: RASPBERRY SYRUP 5 ML UDP PO SCH (21:39)
[2017-05-05] MEDS: SODIUM CHLORIDE 0.9% 1000ML 1,000 ML IV SCH (21:39)
[2017-05-05] MEDS: ACETAMINOPHEN 325 MG TAB PO PRN (21:40)
--- NOTE | 2017-05-05 23:27 | History and Physical ---
History & Physical Date & Time of Service: May 05, 2017 at 22:54 Chief Complaint: C. Difficile Colitis Primary Care Physician: Gosia Hay M.D. (MEDICAL) History of Present Illness Source: patient, family, clinic records, hospital records This is a 26 year old male with a PMH of anal fistula presents with diarrhea. States that for the past month, he's had trouble with the fistula. Has seen general surgery and then was referred to colo-rectal surgery. Plan was for surgical intervention on May 11. He states that he was on both Augmentin and Flagyl for the fistula and stopped it about a week ago. He presented to [facility] for the diarrhea on 05/03. Had a CT done which showed colitis and sacroiliitis. He was sent home with prednisone with a possible diagnosis of inflammatory bowel disease. He came back to the next day to drop off a stool sample. This was tested and found to be positive for C. diff. He was told to come back to the ER. Continues to have watery diarrhea. Difficult keeping things down. No nausea/vomiting. Had some chills as well. No abdominal pain. Family History FH: cancer FH: heart disease FH: hypertension Social History Smoking Status: Never Smoker Drug Use: none Marital Status: in relationship Housing status: lives with family Occupational Status: employed Multi-Drug Resistant Organisms History of MDRO: No Allergies Coded Allergies: Sulfa Drugs (Verified Allergy, Unknown, Hives and swelling., 05/05/17) Reported by PT. Home Medications Scheduled Prednisone (Prednisone), 1 TAB PO DAILY Review of Systems Constitutional: + chills, No fever, No weakness Eyes: No worsening of vision ENT: No hearing loss Respiratory: No cough, No sputum, No shortness of breath Cardiovascular: No chest pain, No edema, No palpitations Abdomen: + diarrhea, No pain, No nausea, No vomiting, No constipation, No GI bleeding Musculoskeletal: + joint pain (chronic back pain), No muscle pain Genitourinary - Male: No hematuria, No dysuria, No urinary frequency, No urinary urgency Neurologic: No weakness, No numbness/tingling, No vertigo, No balance problems Psychiatric: No depression symptoms, No anxiety, No insomnia Endocrine: No fatigue Hematologic / Lymphatic: No abnormal bleeding/bruising Integumentary: No rash Allergic / Immunologic: No environmental allergies, No seasonal allergies Physical Exam Vital Signs Date Time Temp Pulse Resp B/P (MAP) Pulse Ox O2 Delivery O2 Flow Rate FiO2 05/05/17 20:36 93 16 122/70 97 05/05/17 18:49 99 14 125/68 97 Room Air 05/05/17 17:47 97 16 122/64 98 Room Air 05/05/17 16:56 98 16 131/75 95 Room Air 05/05/17 15:48 37.2 103 18 123/75 97 Room Air General Appearance: no apparent distress Head: normocephalic, atraumatic Respiratory/Chest: chest non-tender, lungs clear, normal breath sounds, no respiratory distress, no accessory muscle use Cardiovascular: regular rate, rhythm, no edema, no gallop, no JVD, no murmur, normal peripheral pulses Abdomen/GI: non tender, soft, + abnormal bowel sounds (hyperactive bowel sounds ) Back: + pertinent finding (+tenderness to palpation, lower back b/l) Extremities/Musculoskelatal: normal inspection, no calf tenderness, normal capillary refill, no pedal edema, normal range of motion Neurologic/Psych: no motor/sensory deficits, alert, normal mood/affect Skin: normal color Lymphatic: no adenopathy Diagnostics Laboratory Results Results Past 24 Hours Test 05/05/17 16:20 Range/Units White Blood Count 8.89 4.8-10.8 K/uL Red Blood Count 5.47 4.7-6.1 M/uL Hemoglobin 12.2 14.0-18.0 g/dL Hematocrit 37.5 42-52 % Mean Corpuscular Volume 68.6 80-100 fL Mean Corpuscular Hemoglobin 22.3 25-34 pg Mean Corpuscular Hemoglobin Concent 32.5 32-36 g/dl Platelet Count 351 130-400 K/uL Mean Platelet Volume 8.2 7.4-10.4 fL Neutrophils (%) (Auto) 59.6 % Lymphocytes (%) (Auto) 23.2 % Monocytes (%) (Auto) 16.1 % Eosinophils (%) (Auto) 0.7 % Basophils (%) (Auto) 0.2 % Neutrophils # (Auto) 5.30 1.4-6.5 K/uL Lymphocytes # (Auto) 2.06 1.2-3.4 K/uL Monocytes # (Auto) 1.43 0.11-0.59 K/uL Eosinophils # (Auto) 0.06 0-0.5 K/uL Basophils # (Auto) 0.02 0-0.2 K/uL RDW Standard Deviation 44.6 36.4-46.3 fL RDW Coefficient of Variation 17.9 11.5-14.5 % Immature Granulocyte % (Auto) 0.2 % Immature Granulocyte # (Auto) 0.02 0.00-0.02 K/uL Microcytosis PRESENT Sodium Level 136 136-145 mmol/L Potassium Level 3.8 3.5-5.1 mmol/L Chloride Level 99 98-107 mmol/L Carbon Dioxide Level 27 21-32 mmol/L Anion Gap 10.0 3-11 mmol/L Blood Urea Nitrogen 15 7-18 mg/dl Creatinine 0.84 0.60-1.40 mg/dl Est Creatinine Clear Calc Drug Dose 106.5 ml/min Estimated GFR () 139.1 Estimated GFR (Non- 120.0 BUN/Creatinine Ratio 17.5 10-20 Random Glucose 95 70-99 mg/dl Calcium Level 9.3 8.5-10.1 mg/dl Magnesium Level 1.9 1.8-2.4 mg/dl Total Bilirubin 0.4 0.2-1 mg/dl Aspartate Amino Transf (AST/SGOT) 9 15-37 U/L Alanine Aminotransferase (ALT/SGPT) 14 12-78 U/L Alkaline Phosphatase 67 45-117 U/L Total Protein 8.4 6.4-8.2 gm/dl Albumin 3.4 3.4-5.0 gm/dl Globulin 5.0 2.5-4.0 gm/dl Albumin/Globulin Ratio 0.7 0.9-2 Lyme Disease IgG Antibody NEG NEG Lyme Disease IgM Antibody NEG NEG Diagnostic Radiology L KNEE 3 VIEWS CLINICAL HISTORY: Left knee swelling. Possible joint effusion. COMPARISON: Left knee radiographs May 30, 2014. FINDINGS: Alignment of the left knee is anatomic. There is a moderate left knee joint effusion without lipohemarthrosis. No fracture or suspicious lesion is present. IMPRESSION: 1. Moderate-sized left knee joint effusion. 2. No osseous abnormality of the left knee. PA CHEST RADIOGRAPH AND UPRIGHT AND SUPINE AP RADIOGRAPHS OF THE ABDOMEN CLINICAL HISTORY: Abdominal pain. C. Difficile colitis. Possible megacolon. COMPARISON STUDY: CT of the abdomen and pelvis May 03, 2017 and chest radiograph June 28, 2013. FINDINGS: Lung volumes are normal. Lungs are clear. No pneumothorax or pleural effusion is present. Pulmonary vascularity is normal. Cardiomediastinal silhouette is normal. There is no free air. The bowel gas pattern is normal. No colonic distention is identified by radiography. IMPRESSION: 1. No free air or evidence of bowel obstruction. No colonic dilatation by radiography. 2. No acute cardiopulmonary findings. Impression Assessment and Plan This is a 26 year old male with a PMH of anal fistula presents with diarrhea C. Diff Colitis CT abdomen on 05/03 - colitis concern for inflammatory bowel disease secondary to fistula formation and sacroiliitis for now, we will start Vancomycin QID for C. diff consult GI for further input IVFs, full liquid, advance as tolerated Anal Fistula patient was to see colo-rectal surgery in [place] on May 11 Anemia unsure of the cause of anemia; patient has no bleeding, no blood in stool/urine L knee effusion possible trauma FULL CODE VTE Prophylaxis VTE Risk Assessment Done? Y/N: Yes Risk Level: Very Low Given or contraindicated: Treatment not indicated
[2017-05-06 00:25] VITALS: BP 128/74; PULSE 96; TEMP 37.1; O2SAT 98
[2017-05-06 05:53] LABS: HEMATOCRIT 35.2 % (42-52); MEAN CELL VOLUME 68.9 fL (80-100); MEAN CORPUSCULAR HEMOGLOBIN 22.7 pg (25-34); MEAN PLATELET VOLUME 7.9 fL (7.4-10.4); PLATELET COUNT 339 K/uL (130-400); RED BLOOD COUNT 5.11 M/uL (4.7-6.1); WHITE BLOOD COUNT 9.05 K/uL (4.8-10.8)
[2017-05-06 06:26] LABS: BLOOD UREA NITROGEN 13 mg/dl (7-18); BUN/CREATININE RATIO 18.4 (10-20); CALCIUM 8.4 mg/dl (8.5-10.1); CARBON DIOXIDE 26 mmol/L (21-32); CHLORIDE 101 mmol/L (98-107); CREATININE 0.68 mg/dl (0.60-1.40); GLUCOSE 88 mg/dl (70-99); SODIUM 134 mmol/L (136-145)
[2017-05-06 08:00] VITALS: O2SAT 98
[2017-05-06] MEDS: SODIUM CHLORIDE 0.9% 1000ML 1,000 ML IV SCH ×2 (08:08→18:06)
[2017-05-06] MEDS: RASPBERRY SYRUP 5 ML UDP PO SCH ×4 (08:09→20:04)
[2017-05-06 08:10] VITALS: BP 123/71; PULSE 88; TEMP 37.2; O2SAT 92
[2017-05-06] MEDS: VANCOMYCIN HCL 250 MG/5 ML SOLN PO SCH ×4 (08:17→20:04)
[2017-05-06] MEDS: ACETAMINOPHEN 325 MG TAB PO PRN ×2 (10:57→20:08)
--- NOTE | 2017-05-06 12:23 | GASTROINTESTINAL CONSULTATION ---
DATE OF CONSULTATION: 05/06/2017 CHIEF COMPLAINT: Abdominal discomfort. HISTORY OF PRESENT ILLNESS: The patient is a 26-year-old male, with a past medical history notable for an anorectal fistula, who presented to the Emergency Room after he was found to be C. diff positive. The patient reports that he has had several months of perirectal discomfort and was recently found to have an anorectal fistula. He is to have a fistulotomy performed early in May by Dr. Calvillo. The patient notes that he was placed onto a course of Augmentin in addition to ciprofloxacin that lasted for approximately one week. He notes that, over the last 2 weeks, he has developed worsening discomfort and then diarrhea. He did have a CT scan done several days ago which showed evidence of inflammatory changes in the left colon and cecum. The patient also notes having discomfort in the lower back and the left knee. PAST MEDICAL HISTORY: No chronic medical problems. OUTPATIENT MEDICATIONS: No chronic medications. SURGICAL HISTORY: No prior surgeries. FAMILY HISTORY: Mother with a history of ulcerative colitis status post subtotal colectomy in her early 20s. SOCIAL HISTORY: Nonsmoker. The patient denies alcohol abuse. The patient denies drug use. ALLERGIES: TO SULFA. REVIEW OF SYSTEMS: CONSTITUTIONAL: The patient with no fevers, no weakness. He denies chills today. EYES: No worsening vision. ENT: No difficulty swallowing. RESPIRATORY: No cough, no shortness of breath. CARDIOVASCULAR: No chest pain. GASTROINTESTINAL: Please see history of present illness. MUSCULOSKELETAL: Joint pain noted in the left knee. GENITOURINARY: No dysuria. NEUROLOGIC: No headache. PSYCHIATRIC: No depression. ENDOCRINE: No fatigue or polyuria. DERMATOLOGY: No rashes. PHYSICAL EXAMINATION: VITAL SIGNS: Temperature of 37.2, blood pressure is 123/71 and pulse ox 92% on room air. HEENT: No scleral icterus noted. No JVD noted. LUNGS: Clear to auscultation. ABDOMEN: The patient with mild left lower quadrant discomfort. No rebound or peritoneal signs. EXTREMITIES: No edema is noted. The patient with tenderness and swelling noted in the left knee. NEUROLOGIC: Cranial nerves are grossly intact. Motor grossly intact. LABORATORIES: White blood cell count 9.0, hemoglobin 11.6, hematocrit is 35.2 and platelet count is 339. Chemistry; sodium 134, potassium 4.0, BUN 13, creatinine 0.68, calcium 8.4, AST 9, ALT 14, alkaline phosphatase 67 and albumin of 3.4. The patient is reported as C. diff positive; this is not available for me to review. IMPRESSION: A 26-year-old male, recently diagnosed with clostridium difficile infection, on vancomycin therapy. The imaging study does seem somewhat concerning as he may have underlying inflammatory bowel disease. I would suggest that the patient continue on vancomycin. We will re-evaluate the patient to determine when the next best point for colonoscopy is. RECOMMENDATIONS: 1. Vancomycin 125 q.i.d. 2. Full liquid diet today. 3. We will determine the timing of colonoscopy pending course during hospital stay. Please call with any questions or concerns.
--- NOTE | 2017-05-06 14:28 | Progress Note ---
Medicine Progress Note Date & Time of Visit: May 06, 2017 at 14:11. Subjective Pt was seen and examined Lying in bed with no distress Pt said that the diarrhea slightly improve Continue to have left knee tenderness Denies any chest pain, palpitation, dizziness and SOB Objective Last 8 Hrs Date Time Temp Pulse Resp B/P (MAP) Pulse Ox O2 Delivery O2 Flow Rate FiO2 05/06/17 08:10 37.2 88 18 123/71 (88) 92 Room Air 05/06/17 08:00 98 Room Air Physical Exam: General- No acute distress Head- atraumatic Eyes- PERRL, EOMI ENT- oropharynx clear Neck- supple, no JVD Lungs- clear to auscultation Heart- regular rhythm; no murmur Abdomen- Hypoactive bowel sounds, soft, non tender Extremities- no calf tenderness, left knee swelling Neuro- alert, oriented x 3; PERRL, EOMI; no facial palsy Skin- warm & dry Laboratory Results: Last 24 Hours Test 05/05/17 16:20 05/06/17 05:39 White Blood Count 8.89 K/uL 9.05 K/uL Red Blood Count 5.47 M/uL 5.11 M/uL Hemoglobin 12.2 g/dL 11.6 g/dL Hematocrit 37.5 % 35.2 % Mean Corpuscular Volume 68.6 fL 68.9 fL Mean Corpuscular Hemoglobin 22.3 pg 22.7 pg Mean Corpuscular Hemoglobin Concent 32.5 g/dl 33.0 g/dl Platelet Count 351 K/uL 339 K/uL Mean Platelet Volume 8.2 fL 7.9 fL Neutrophils (%) (Auto) 59.6 % Lymphocytes (%) (Auto) 23.2 % Monocytes (%) (Auto) 16.1 % Eosinophils (%) (Auto) 0.7 % Basophils (%) (Auto) 0.2 % Neutrophils # (Auto) 5.30 K/uL Lymphocytes # (Auto) 2.06 K/uL Monocytes # (Auto) 1.43 K/uL Eosinophils # (Auto) 0.06 K/uL Basophils # (Auto) 0.02 K/uL RDW Standard Deviation 44.6 fL 45.2 fL RDW Coefficient of Variation 17.9 % 17.9 % Immature Granulocyte % (Auto) 0.2 % Immature Granulocyte # (Auto) 0.02 K/uL Microcytosis PRESENT Sodium Level 136 mmol/L 134 mmol/L Potassium Level 3.8 mmol/L 4.0 mmol/L Chloride Level 99 mmol/L 101 mmol/L Carbon Dioxide Level 27 mmol/L 26 mmol/L Anion Gap 10.0 mmol/L 7.0 mmol/L Blood Urea Nitrogen 15 mg/dl 13 mg/dl Creatinine 0.84 mg/dl 0.68 mg/dl Est Creatinine Clear Calc Drug Dose 106.5 ml/min 131.6 ml/min Estimated GFR () 139.1 > 150.0 Estimated GFR (Non- 120.0 130.9 BUN/Creatinine Ratio 17.5 18.4 Random Glucose 95 mg/dl 88 mg/dl Calcium Level 9.3 mg/dl 8.4 mg/dl Magnesium Level 1.9 mg/dl Total Bilirubin 0.4 mg/dl Aspartate Amino Transf (AST/SGOT) 9 U/L Alanine Aminotransferase (ALT/SGPT) 14 U/L Alkaline Phosphatase 67 U/L Total Protein 8.4 gm/dl Albumin 3.4 gm/dl Globulin 5.0 gm/dl Albumin/Globulin Ratio 0.7 Lyme Disease IgG Antibody NEG Lyme Disease IgM Antibody NEG Assessment & Plan C. Diff Colitis CT abdomen on 05/03 showed colitis and Sacroiliitis Diarrhea slightly improved Gastro on board Continue PO Vancomycin QID Continue full liquid diet, Continue IVF Will need a colonoscopy Anal Fistula Schedule for colo-rectal surgery in [place] on May 11 GI was planning to get the colonoscopy done before the surgery Anemia Hbg stable L knee effusion Denies any trauma or injury Xray of knee showed moderate-sized left knee joint effusion. Will consult ortho for possible knee aspiration FULL CODE Consultants: gastro Current Inpatient Medications: Current Inpatient Medications Medications (Trade) Dose Ordered Sig/Barrett Route Start Time Stop Time Status Last Admin Dose Admin Acetaminophen (Tylenol Tab) 650 mg Q4H PRN PO 05/05/17 20:00 06/04/17 19:59 05/06/17 10:57 650 MG Al Hydrox/Mg Hydrox/Simethicone (Maalox Max Susp) 15 ml Q4H PRN PO 05/05/17 20:00 06/04/17 19:59 Magnesium Hydroxide (Milk Of Magnesia Susp) 30 ml Q6H PRN PO 05/05/17 20:00 12/25/17 19:59 Ondansetron HCl (Zofran Inj) 4 mg Q6H PRN IV 05/05/17 20:00 06/04/17 19:59 Vancomycin HCl (Vancomycin Oral Soln) 250 mg QID PO 05/05/17 21:00 05/19/17 20:59 05/06/17 08:17 250 MG Sodium Chloride 1,000 ml @ 100 mls/hr Q10H IV 05/05/17 21:00 06/04/17 20:59 05/06/17 08:08 100 MLS/HR Raspberry (Raspberry Syrup 5ml Cup) 5 ml QID PO 05/05/17 21:00 05/19/17 20:59 05/06/17 08:09 5 ML
[2017-05-06 15:36] VITALS: BP 122/74; PULSE 92; TEMP 37.2; O2SAT 98
[2017-05-06] MEDS ORDERED: ETHYL CHLORIDE AER SPR 100 ML CAN EXT ONE (16:45)
[2017-05-06 17:40] LABS: SYNOVIAL FLUID APPEARANCE HAZY; SYNOVIAL FLUID COLOR YELLOW; SYNOVIAL FLUID MONONUC RELAT 8.4 %; SYNOVIAL FLUID POLYNUC RELAT 91.6 %
[2017-05-06 18:43] VITALS: BP 135/77; PULSE 102; TEMP 37.9; O2SAT 96
--- NOTE | 2017-05-06 19:43 | ORTHOPEDIC CONSULTATION ---
DATE OF CONSULTATION: 05/06/2017 HISTORY OF PRESENT ILLNESS: This is a 26-year-old gentleman seen at the request of Dr. Hudson Hutchison and Ramy Hay. The patient has had recent admission due to multiple colorectal issues, diarrhea and recent diagnosis of C. difficile colitis. The patient also began having left knee pain and swelling which began several days ago. He had no previous twisting injuries. No falls on the knee. No prior history of surgery to the left knee. He does chun and he has been in the [employer] recently. 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 He does not have any known tick exposures and no targeted lesions that he can recall. PAST MEDICAL HISTORY: Anal fistula, diarrhea, recent diagnosis of C. difficile colitis, recent nausea and vomiting. PAST SURGICAL HISTORY: No knee surgery. History of colonoscopy. ALLERGIES: SULFA DRUGS, HIVES AND SWELLING. MEDICATIONS: Prednisone 1 tablet daily. SOCIAL HISTORY: Denies tobacco or drug use. Drinks occasionally. He is . He has 2 children. 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 PHYSICAL EXAMINATION: GENERAL: This is a 26-year-old gentleman who is lying supine in his hospital room bed with his present. NEUROLOGIC: He is alert and oriented x3. Speech clear and fluent. Affect is appropriate. EXTREMITIES: Examination of the lower extremities demonstrates flexed position of the left knee. Skin is warm, dry and intact. There is no significant erythema or increased warmth to the left knee compared to the right. He has an obvious left knee effusion compared to the right knee. Left knee has tenderness to palpation which is diffuse. He does have some lateral joint line tenderness compared to the medial joint line. Range of motion is approximately 5-70 degrees of flexion with significant pain with flexion. There is pain posterior lateral aspect of the left knee with flexion. Dorsalis pedis and posterior tibial pulses are 2/4 bilaterally. No streaking, no hypervascularity of the left lower extremity compared to the right. Positive Audrey's test left knee. IMAGING STUDIES: Radiographs demonstrate no obvious fractures, dislocations or avulsions of the left knee. He has an obvious effusion of the left knee. No loose bodies present. IMPRESSION: 1. Left knee effusion, large. 2. Internal derangement of the left knee. 3. Left knee pain. RECOMMENDATIONS: 1. Aspiration of the left knee. 2. Elevation with limited weightbearing. 3. Ice p.r.n., pain medication as per medical service. N.p.o. after midnight pending aspiration studies. We will run aerobic, anaerobic, Gram stain on the aspirate with also specimen for cell count with manual differential, crystal analysis and Lyme titer. We will follow with you. PROCEDURE: After obtaining verbal consent, the patient's left knee was then sterilely prepped with Betadine and alcohol and then after use of ethyl chloride as a local refrigerant on the skin, an 18 gauge needle was then used to aspirate approximately 65 mL of yellowish thickened fluid from the left knee. Aspiration did give the patient some relief. Next, a sterile Band-Aid was placed and the specimens were sent for aerobic, anaerobic, Gram stain as well as cell count with manual differential, Lyme titer and assessment for crystals. The patient tolerated the procedure well. Further consultation to follow. Thank you for the opportunity to consult and the care for this patient.
[2017-05-07] VITALS (8 sets, daily range): BP systolic 116–131; BP diastolic 66–74; PULSE 78–102; TEMP 36.7–37.8; O2SAT 97–98
[2017-05-07] MEDS: SODIUM CHLORIDE 0.9% 1000ML 1,000 ML IV SCH ×2 (04:20→13:45)
[2017-05-07] MEDS: RASPBERRY SYRUP 5 ML UDP PO SCH ×4 (08:00→20:54)
[2017-05-07 09:19] LABS: BLOOD UREA NITROGEN 7 mg/dl (7-18); BUN/CREATININE RATIO 10.2 (10-20); CALCIUM 9.1 mg/dl (8.5-10.1); CARBON DIOXIDE 23 mmol/L (21-32); CHLORIDE 103 mmol/L (98-107); CREATININE 0.67 mg/dl (0.60-1.40); GLUCOSE 99 mg/dl (70-99); POTASSIUM 3.7 mmol/L (3.5-5.1); SODIUM 138 mmol/L (136-145)
[2017-05-07] MEDS: ACETAMINOPHEN 325 MG TAB PO PRN ×2 (11:39→21:00)
--- NOTE | 2017-05-07 13:27 | Progress Note ---
Medicine Progress Note Date & Time of Visit: May 07, 2017 at 13:06. Subjective Pt was seen and examined Lying in bed with no distress He was made NPO last night Pt said that he is hungry and would like to eat something He denies any abdominal pain He said that the diarrhea is slowing down Denies any chest pain, palpitation, dizziness and SOB Objective Last 8 Hrs Date Time Temp Pulse Resp B/P (MAP) Pulse Ox O2 Delivery O2 Flow Rate FiO2 05/07/17 08:15 37.5 100 16 123/66 (85) 98 Physical Exam: General- No acute distress Head- atraumatic Eyes- PERRL, EOMI ENT- oropharynx clear Neck- supple, no JVD Lungs- clear to auscultation Heart- regular rhythm; no murmur Abdomen- +BS, nontender Extremities- no calf tenderness, left knee swelling Neuro- alert, oriented x 3; PERRL, EOMI; no facial palsy Skin- warm & dry Laboratory Results: Last 24 Hours Test 05/06/17 16:45 05/07/17 08:39 Synovial Fluid Source KNEE Synovial Fluid Color YELLOW Synovial Fluid Appearance HAZY Synovial Fluid WBC 03322 /uL Synovial Fluid RBC < 3000 /uL Synovial Fluid Polynuclear WBCs % 91.6 % Synovial Fluid Mononuclear WBCs % 8.4 % Synovial Fluid Crystals Sodium Level 138 mmol/L Potassium Level 3.7 mmol/L Chloride Level 103 mmol/L Carbon Dioxide Level 23 mmol/L Anion Gap 12.0 mmol/L Blood Urea Nitrogen 7 mg/dl Creatinine 0.67 mg/dl Est Creatinine Clear Calc Drug Dose 133.5 ml/min Estimated GFR () > 150.0 Estimated GFR (Non- 131.7 BUN/Creatinine Ratio 10.2 Random Glucose 99 mg/dl Calcium Level 9.1 mg/dl Date/Time Source Procedure Growth Status 05/06/17 16:45 Joint Fluid/Space (Synovial) Knee Left Gram Stain - Final Resulted 05/06/17 16:45 Joint Fluid/Space (Synovial) Knee Left Bacterial Culture - Preliminary NO GROWTH TO DATE. Resulted Assessment & Plan C. Diff Colitis CT abdomen on 05/03 showed colitis and Sacroiliitis Diarrhea slightly improved Gastro on board Continue PO Vancomycin QID Continue IVF Tolerated full liquid diet, will advance Case discussed with Gastro, Might consider to get a colonoscopy in the next few days if diarrhea improved Clinically improve Anal Fistula Schedule for colo-rectal surgery in [place] on May 11 GI was planning to get the colonoscopy done before the surgery If unable to get the colonoscopy in the next few days, might consider to inform the surgeon in [place] for possible to postpone the surgery. Anemia Hbg stable L knee effusion Denies any trauma or injury Xray of knee showed moderate-sized left knee joint effusion. S/P Left Knee aspiration yesterday by Dr. Pedraza Synovial WBC 13K, consistent mostly for inflammatory Synovial gram stain no growth so far DVT px on SCDs/ambulating FULL CODE Consultants: gastro Current Inpatient Medications: Current Inpatient Medications Medications (Trade) Dose Ordered Sig/Barrett Route Start Time Stop Time Status Last Admin Dose Admin Acetaminophen (Tylenol Tab) 650 mg Q4H PRN PO 05/05/17 20:00 06/04/17 19:59 05/07/17 11:39 650 MG Al Hydrox/Mg Hydrox/Simethicone (Maalox Max Susp) 15 ml Q4H PRN PO 05/05/17 20:00 06/04/17 19:59 Magnesium Hydroxide (Milk Of Magnesia Susp) 30 ml Q6H PRN PO 05/05/17 20:00 06/04/17 19:59 Ondansetron HCl (Zofran Inj) 4 mg Q6H PRN IV 05/05/17 20:00 06/04/17 19:59 Sodium Chloride 1,000 ml @ 100 mls/hr Q10H IV 05/05/17 21:00 06/04/17 20:59 05/07/17 04:20 100 MLS/HR Raspberry (Raspberry Syrup 5ml Cup) 5 ml QID PO 05/05/17 21:00 05/19/17 20:59 05/06/17 20:04 5 ML Vancomycin HCl (Vancomycin Oral Soln) 125 mg QID PO 05/07/17 12:00 05/19/17 20:59
--- NOTE | 2017-05-07 14:02 | Gastroenterology Progress Note ---
Progress Note Date of Service: May 07, 2017 Subjective Pt evaluation today including: conversation w/ patient, physical exam, chart review, lab review, review of inpatient medication list Pt is c/o L knee swelling and pain ? having ortho procedure today. Previous synovial fluid aspiration w/o growth. He is having still loose stools but not as frequent. Denies any rectal bleeding. Also denies any abd pain, n/v. Review of Systems Constitutional: No fever, No chills Respiratory: No cough, No shortness of breath Cardiac: No chest pain Abdomen: + problem reported (has anal fistula), No pain, No nausea, No vomiting Musculoskeletal: + see HPI, + joint pain (L knee) Medications Current Inpatient Medications Medications (Trade) Dose Ordered Sig/Barrett Route Start Time Stop Time Status Last Admin Dose Admin Acetaminophen (Tylenol Tab) 650 mg Q4H PRN PO 05/05/17 20:00 06/04/17 19:59 05/07/17 11:39 650 MG Al Hydrox/Mg Hydrox/Simethicone (Maalox Max Susp) 15 ml Q4H PRN PO 05/05/17 20:00 06/04/17 19:59 Magnesium Hydroxide (Milk Of Magnesia Susp) 30 ml Q6H PRN PO 05/05/17 20:00 06/04/17 19:59 Ondansetron HCl (Zofran Inj) 4 mg Q6H PRN IV 05/05/17 20:00 06/04/17 19:59 Sodium Chloride 1,000 ml @ 100 mls/hr Q10H IV 05/05/17 21:00 06/04/17 20:59 05/07/17 13:45 100 MLS/HR Raspberry (Raspberry Syrup 5ml Cup) 5 ml QID PO 05/05/17 21:00 05/19/17 20:59 05/06/17 20:04 5 ML Vancomycin HCl (Vancomycin Oral Soln) 125 mg QID PO 05/07/17 12:00 05/19/17 20:59 Objective Vital Signs Date Time Temp Pulse Resp B/P (MAP) Pulse Ox O2 Delivery O2 Flow Rate FiO2 05/07/17 08:15 37.5 100 16 123/66 (85) 98 05/07/17 00:00 36.8 98 18 117/73 (88) 98 Room Air 05/06/17 20:00 Room Air 05/06/17 18:43 37.9 102 20 135/77 (96) 96 Room Air 05/06/17 16:00 Room Air 05/06/17 15:36 37.2 92 16 122/74 (90) 98 Room Air Physical Exam General Appearance: + mild distress (c/o L knee pain ), + thin Eyes: normal inspection, PERRL, EOMI Neck: supple, no JVD, trachea midline Respiratory/Chest: normal breath sounds, no respiratory distress, no accessory muscle use Cardiovascular: regular rate, rhythm, no gallop, no murmur Abdomen: normal bowel sounds, non tender, soft Extremities: normal inspection, no pedal edema, no calf tenderness, + swelling (L knee w/o redness or warmth) Neurologic/Psych: alert, normal mood/affect, oriented x 3 Skin: normal color, no jaundice, no rash Laboratory Results Last 24 Hours Test 05/06/17 16:45 05/07/17 08:39 Synovial Fluid Source KNEE Synovial Fluid Color YELLOW Synovial Fluid Appearance HAZY Synovial Fluid WBC 17540 /uL Synovial Fluid RBC < 3000 /uL Synovial Fluid Polynuclear WBCs % 91.6 % Synovial Fluid Mononuclear WBCs % 8.4 % Synovial Fluid Crystals Sodium Level 138 mmol/L Potassium Level 3.7 mmol/L Chloride Level 103 mmol/L Carbon Dioxide Level 23 mmol/L Anion Gap 12.0 mmol/L Blood Urea Nitrogen 7 mg/dl Creatinine 0.67 mg/dl Est Creatinine Clear Calc Drug Dose 133.5 ml/min Estimated GFR () > 150.0 Estimated GFR (Non- 131.7 BUN/Creatinine Ratio 10.2 Random Glucose 99 mg/dl Calcium Level 9.1 mg/dl Assessment and Plan Pt is a 26 y/o male with Cdiff diarrhea (Dx on 05/03), hx of anal fistula treated w antibx in the past and is already scheduled for exam under anesthesia by Dr. Kumar ([facility] [place] Colorectal Surgery) on 05/11. CT abd/pelvis on 05/03 w evidence of cecal and rectal thickening, sacroilitis related to IBD? L knee swelling may be related to IBD as well. Mom and brother w hx of Ulcerative colitis. - Complete Vancomycin 125mg QID x 14 day course. - Currently NPO for possible orthopedic procedure for L knee swelling/pain - Will discuss w Dr. Obando on timing of colonoscopy to r/o IBD while pt is admitted. - He has surgery for anal fistula planned for 05/[address] Kumar, will need to reschedule if still admitted by that time. Attg add I interviewed and examined pt, reviewed chart and labs, agree with plans as above. Pt with C diff, diarrhea. He has mult risk factors for IBD - FH, finding of sacral inflammation on CT, apparent sterile inflamm arhtiritis. Will follow, plan inpt cscopy if slow response to C diff rx.
[2017-05-07] MEDS: VANCOMYCIN HCL 125 MG/2.5ML SOLN PO SCH ×3 (14:47→20:54)
[2017-05-07] MEDS ORDERED: NURSING DECISION MEDICATION ORDER SCH (21:15)
[2017-05-07] MEDS ORDERED: SODIUM CHLORIDE 0.65% NA SOLN 45 ML (OCEAN) PRN (21:15)
[2017-05-07] MEDS ORDERED: SODIUM CHLORIDE 0.9% 500ML 500 ML IV ONE (21:30)
[2017-05-07] MEDS ORDERED: LORAZEPAM 2 MG/ML 1 ML VIAL IV PRN (21:30)
[2017-05-07] MEDS ORDERED: LORAZEPAM INJ 0.5 MG in SYRINGE 0.75 ML IV PRN (21:45)
--- NOTE | 2017-05-07 22:53 | DIAGNOSTIC IMAGING REPORT ---
CHEST ONE VIEW PORTABLE CLINICAL HISTORY: 26 years-old Male presenting with hemoptysis. TECHNIQUE: Portable upright AP view of the chest was obtained. COMPARISON: 05/05/2017. FINDINGS: Cardiomediastinal silhouette normal. Lungs and pleural spaces clear. Osseous structures normal. Upper abdomen normal. IMPRESSION: 1. No acute cardiopulmonary disease. Electronically signed by: Otoniel Espana M.D. 05/07/2017 10:52 PM Dictated Date/Time: 05/07/2017 10:51 PM
[2017-05-08] MEDS: SODIUM CHLORIDE 0.9% 1000ML 1,000 ML IV SCH (00:20)
[2017-05-08 07:41] VITALS: BP 124/68; PULSE 91; TEMP 36.8; O2SAT 98
[2017-05-08] MEDS: RASPBERRY SYRUP 5 ML UDP PO SCH ×4 (08:03→19:59)
[2017-05-08] MEDS: VANCOMYCIN HCL 125 MG/2.5ML SOLN PO SCH ×4 (08:03→19:59)
--- NOTE | 2017-05-08 09:52 | Gastroenterology Progress Note ---
Progress Note Date of Service: May 08, 2017 Subjective Pt evaluation today including: conversation w/ patient, physical exam, chart review, lab review, review of studies, review of inpatient medication list Mr. Mcgill is a 26 yr old male with an anorectal fistula on pre-op antibiotics who developed C-diff colitis. On Vanco 125mg QID. Today decreased frequency of BMs compared to yesterday but still with explosive , liquid stool. Labs today w/o leukocytosis or electrolyte derangements. Creatinine normal at 0.82. No abdominal pain. Knee is swollen, painful. Review of Systems Constitutional: No fever, No chills Respiratory: No cough, No shortness of breath Abdomen: No pain, No nausea, No vomiting Male : No dysuria Neuro: No memory loss Psych: No depression symptoms Heme: No abnormal bleeding/bruising Endo: No fatigue Skin: No rash swollen, tender left knee Medications Current Inpatient Medications Medications (Trade) Dose Ordered Sig/Barrett Route Start Time Stop Time Status Last Admin Dose Admin Acetaminophen (Tylenol Tab) 650 mg Q4H PRN PO 05/05/17 20:00 06/04/17 19:59 05/07/17 21:00 650 MG Al Hydrox/Mg Hydrox/Simethicone (Maalox Max Susp) 15 ml Q4H PRN PO 05/05/17 20:00 06/04/17 19:59 Magnesium Hydroxide (Milk Of Magnesia Susp) 30 ml Q6H PRN PO 05/05/17 20:00 06/04/17 19:59 Ondansetron HCl (Zofran Inj) 4 mg Q6H PRN IV 05/05/17 20:00 06/04/17 19:59 Sodium Chloride 1,000 ml @ 100 mls/hr Q10H IV 05/05/17 21:00 06/04/17 20:59 05/08/17 00:20 100 MLS/HR Raspberry (Raspberry Syrup 5ml Cup) 5 ml QID PO 05/05/17 21:00 05/19/17 20:59 05/08/17 08:03 5 ML Vancomycin HCl (Vancomycin Oral Soln) 125 mg QID PO 05/07/17 12:00 05/19/17 20:59 05/08/17 08:03 125 MG Sodium Chloride (Kline Nasal [place]) 1 sprays PRN PRN NA 05/07/17 21:15 06/06/17 21:14 05/07/17 21:29 1 SPRAYS Lorazepam 0.5 mg/ Syringe 1 ml @ 1 mls/min Q4H PRN IV 05/07/17 21:45 06/06/17 21:44 05/07/17 23:03 1 MLS/MIN Objective Vital Signs Date Time Temp Pulse Resp B/P (MAP) Pulse Ox O2 Delivery O2 Flow Rate FiO2 05/08/17 07:41 36.8 91 18 124/68 (86) 98 Room Air 05/08/17 02:25 Room Air 05/07/17 23:36 36.9 83 18 116/66 (83) 98 Room Air 05/07/17 21:44 97 Room Air 05/07/17 21:01 37.8 102 18 131/70 (90) 97 Room Air 05/07/17 16:30 98 Room Air 05/07/17 15:23 36.7 78 16 119/74 (89) 98 Physical Exam General Appearance: no apparent distress ENT: pharynx normal Neck: no JVD Respiratory/Chest: lungs clear Cardiovascular: regular rate, rhythm, no JVD, no murmur Abdomen: non tender, soft Extremities: no pedal edema, no calf tenderness, + swelling (left knee) Neurologic/Psych: alert, normal mood/affect, oriented x 3 Skin: no jaundice Laboratory Results Last 24 Hours Test 05/07/17 21:42 Hemoglobin 11.2 g/dL Hematocrit 34.0 % Lactic Acid Level 0.9 mmol/L Assessment and Plan Mr. Mcgill is a 26 yr old male with C-diff colitis, improving on vancomycin po. Plan: 1. Continue the Vanco 125mg QID x total of 10 - 14 days, consider continuing or restarting the vanco every other day if antibiotics have to be restarted prior to surgical repair of anorectal fistula. 2. Continue full liquid diet. Will likely advance to low fiber diet tomorrow if continues to improve. 3. May consider adding cholestyramine tomorrow if BMs continue to be very liquidy. Attg add: I interviewed and examined pt, reviewed chart and labs. Pt with prob IBD, also C diff. Pt appears clinically improved. Would prefer to defer cscopy until C diff resolved, but would consider sooner scope if he has persistent symptoms on Vanco. WOuld consider Rheum consult for inflamm arthritis.
--- NOTE | 2017-05-08 11:23 | Orthopedic Progress Note ---
Orthopedic Progress Note Date of Service May 08, 2017. Subjective Additional Notes: Patient seen at bedside, pain unchanged, denies fevers and chills. Objective EXTREMITIES: Examination of the lower extremities demonstrates flexed position of the left knee. Skin is warm, dry and intact. There is no significant erythema or increased warmth to the left knee compared to the right. He has large left knee effusion compared to the right knee. Left knee has tenderness to palpation which is diffuse. He does have some lateral joint line tenderness compared to the medial joint line. Range of motion is approximately 5-90 degrees of flexion with significant pain with flexion. There is pain posterior lateral aspect of the left knee with flexion. Dorsalis pedis and posterior tibial pulses are 2/4 bilaterally. No streaking, no hypervascularity of the left lower extremity compared to the right. Positive Audrey's test left knee. Date Time Temp Pulse Resp B/P (MAP) Pulse Ox O2 Delivery O2 Flow Rate FiO2 05/08/17 07:41 36.8 91 18 124/68 (86) 98 Room Air 05/08/17 02:25 Room Air 05/07/17 23:36 36.9 83 18 116/66 (83) 98 Room Air 05/07/17 21:44 97 Room Air 05/07/17 21:01 37.8 102 18 131/70 (90) 97 Room Air 05/07/17 16:30 98 Room Air 05/07/17 15:23 36.7 78 16 119/74 (89) 98 Laboratory Results 24 Hours: Test 05/07/17 21:42 Hematocrit 34.0 % Hemoglobin 11.2 g/dL Assessment & Plan Assessment: Left knee inflammation/effusion, atraumatic, aseptic. Plan: GS/CX of left knee negative for bacteria. Cell count [id number], suggestive of aseptic inflammatory process Rec nsaids/tylenol for pain relief compressive delio wrap for comfort Crutches with ambulation May weight bear as tolerates PT/OT No surgical intervention warranted at this time. Recs in chart.
--- NOTE | 2017-05-08 11:27 | Consultant Recommendations ---
Drupal Architect Recommendations Date of Service May 08, 2017. Drupal Architect Recommendations Orthopedic recommendations: Left knee effusion -Weight bear as tolerates with crutches -PT/OT -Anti-inflammatory PRN -TESSA wrap for comfort SPECIAL CARE INSTRUCTIONS: VERY IMPORTANT TO READ AND REVIEW A. There are a few signs you need to watch for after you are home. Call [facility] if you notice any of the followin. Increased severe knee pain. Some pain is expected especially when you exercise. 2. Increased swelling in your leg or knee; pain or swelling of the calf muscle in either lower leg. 3. Increased erythema. 4. Shortness of breath or chest pain. FOLLOW UP VISIT: If appointment is not already scheduled: Please call [facility] to make a follow-up appointment for 1-2 weeks after discharge.
[2017-05-08] MEDS ORDERED: NF1094 PO (12:13)
[2017-05-08] MEDS ORDERED: LCTX PO (12:13)
--- NOTE | 2017-05-08 12:14 | Discharge Instructions ---
Discharge Instructions Date of Service May 08, 2017. Admission Reason for Admission: C. Difficile Colitis Discharge Discharge Diagnosis / Problem: C DIFF COLITIS Discharge Goals Goal(s): Decrease discomfort, Improve function, Improve disease control, Diagnostic testing, Therapeutic intervention Activity Recommendations Activity Limitations: resume your previous activity . Instructions / Follow-Up Instructions / Follow-Up HOSPITAL FOLLOW UP : 05/14/2017 1:00 PM Gosia Hay MD [facility] GASTROENTEROLOGY FOLLOW UP WITH DR GUAMAN IN 6-8 WEEKS ,FOR OUT PATIENT COLONOSCOPY RHEUMATOLOGY FOLLOW UP WITH DR PENA IN 2-3 WEEKS FOR LEFT KNEE PAIN / SWELLING EVALUATION FOR POSSIBLE INFLAMMATORY ARTHRITIS OFFICE WILL CALL WITH APPOINTMENT Ramy Tilley M.D. [id number] [facility] [address], [facility] [address] ORTHOPEDICS FOLLOW UP : Please call [facility] to make a follow-up appointment for 1-2 weeks LEFT KNEE PAIN //SWELLING -Weight bear as tolerates on left leg with crutches till evaluated by Orthopedics -For knee pain can take Tylenol or -Advil , Aleve , Motrin as needed , take with food -TESSA wrap for comfort SPECIAL CARE INSTRUCTIONS: VERY IMPORTANT TO READ AND REVIEW A. There are a few signs you need to watch for after you are home. Call [facility] if you notice any of the following : 1. Increased severe knee pain. Some pain is expected especially when you exercise. 2. Increased swelling in your leg or knee; pain or swelling of the calf muscle in either lower leg. 3. Increased erythema. 4. Shortness of breath or chest pain. Current Hospital Diet Patient's current hospital diet: Full Liquid Diet Discharge Diet Recommended Diet: Low Fiber Diet Pending Studies Studies pending at discharge: no Medical Emergencies . Who to Call and When: Medical Emergencies: If at any time you feel your situation is an emergency, please call [phone] immediately. . Non-Emergent Contact Non-Emergency issues call your: Primary Care Provider . . "Provider Documentation" section prepared by Shantell Thompson. . Choir Singer Recommendations Choir Singer Recommendations: Orthopedic recommendations: Left knee effusion -Weight bear as tolerates with crutches -PT/OT -Anti-inflammatory PRN -TESSA wrap for comfort SPECIAL CARE INSTRUCTIONS: VERY IMPORTANT TO READ AND REVIEW A. There are a few signs you need to watch for after you are home. Call [facility] if you notice any of the followin. Increased severe knee pain. Some pain is expected especially when you exercise. 2. Increased swelling in your leg or knee; pain or swelling of the calf muscle in either lower leg. 3. Increased erythema. 4. Shortness of breath or chest pain. FOLLOW UP VISIT: If appointment is not already scheduled: Please call [facility] to make a follow-up appointment for 1-2 weeks after discharge. VTE Core Measure Inpt VTE Proph given/why not?: Treatment not indicated
[2017-05-08 15:21] VITALS: BP 134/80; PULSE 90; TEMP 37.6; O2SAT 98
[2017-05-08] MEDS: IBUPROFEN 600 MG TAB PO PRN (15:24)
--- NOTE | 2017-05-08 20:09 | Progress Note ---
Internal Med Progress Note Date of Service: May 08, 2017. Provider Documentation: SUBJECTIVE: no diarrhea since morning , no nausea or vomiting or abdominal pain tolerating diet well left knee pain and swelling improved OBJECTIVE: Vital Signs-as noted below Exam: General-well appearing , no sign of distress Eyes-sclera non icteric, PERRLA/EOMI ENT-moist oral mucosa, normal oropharynx Neck-no thyromegaly , trachea midline Lungs-clear to auscultate , no wheeze or rales Heart-regular S1/S2 Abdomen-soft, non tender Extremities-no lower ext edema Neuro-AAO x, 3, no focal neurological deficit Lab data as noted below. ASSESSMENT & PLAN: C. Diff Colitis CT abdomen on 05/03 showed colitis and Sacroiliitis Diarrhea slightly improved Gastro on board -appreciate input Continue PO Vancomycin QID-will need total 10-14 days worried about cost for oral Vancomycin -does not have insurance /self pay -out of pocket 14 days Vancomycin cost 600 $ will D/w GI regarding cheaper drug alternative added Cholestyramine for ongoing diarrhea will need out pt follow up with GI in 6-8 weeks for colonoscopic evaluation r/o IBD Anal Fistula Schedule for anorectal fistula resection at [facility] on May 11Sunday pt is asked to update surgery at [place] regarding recent episode of C diff colitis surgery may need to be re scheduled as pt may still have active GI infection Anemia Hbg stable L knee effusion Denies any trauma or injury Xray of knee showed moderate-sized left knee joint effusion. S/P Left Knee aspiration yesterday by Dr. Pedraza Synovial WBC 13K, consistent mostly for inflammatory Synovial gram stain no growth so far per orthopedics possible inflammatory arthritis cont Tylenol /NSAID PRN wt bearing as tolerated with Crutches -follow up with Ortho in 1-2 weeks TESSA wrap as needed for comfort will need Rheumatology eval as out pt DVT px on SCDs/ambulating FULL CODE Consultants: GI DISPOSITION Discharge home when medically stable Medicine follow up with Dr Hay Vital Signs: Date Time Temp Pulse Resp B/P (MAP) Pulse Ox O2 Delivery O2 Flow Rate FiO2 05/09/17 00:00 Room Air 05/08/17 23:09 36.8 93 18 126/75 (92) 98 Room Air 05/08/17 21:02 Room Air 05/08/17 16:00 Room Air 05/08/17 15:21 37.6 90 18 134/80 (98) 98 Room Air Lab Results:
[2017-05-08] MEDS ORDERED: COLESTIPOL HCL 1 GM TAB PO SCH (21:00)
[2017-05-08 23:09] VITALS: BP 126/75; PULSE 93; TEMP 36.8; O2SAT 98
[2017-05-09] MEDS: VANCOMYCIN HCL 125 MG/2.5ML SOLN PO SCH ×2 (07:56→12:11)
[2017-05-09] MEDS: RASPBERRY SYRUP 5 ML UDP PO SCH ×2 (07:56→12:00)
[2017-05-09 08:00] VITALS: O2SAT 98
[2017-05-09] MEDS: IBUPROFEN 600 MG TAB PO PRN (12:16)
[2017-05-09 12:28] LABS: LYME DNA PCR CSF OR SYNOVIAL Not detected (Not Detected); LYME DNA SOURCE Synovial Fluid
[2017-05-09 13:25] VITALS: BP 126/75; PULSE 93; TEMP 36.8; O2SAT 98
--- NOTE | 2017-05-09 13:42 | Discharge Summary ---
Discharge Summary Date of Service May 09, 2017. Discharge Summary Admission Date: May 05, 2017 at 20:00 Discharge Date: May 09, 2017 Discharge Disposition: Home Principal Diagnosis: C DIFF COLITIS Procedures: IMPRESSION: 1. No free air or evidence of bowel obstruction. No colonic dilatation by radiography. 2. No acute cardiopulmonary findings. Consultations: gastro Medication Reconciliation New Medications: Lactobacillus Acidophilus (Lactinex) Tab 1 TAB PO TIDM for 30 Days, #90 TAB over the counter Vancomycin HCl (Vancomycin HCl) 100 Mg/Ml Inj 125 MG PO QID for 14 Days, #56 DOSE Discontinued Medications: Prednisone (Prednisone) 20 Mg Tab 1 TAB PO DAILY for 14 Days, #14 TAB Referrals At Discharge Follow up Referrals: [employer] Referral - Within 6 Weeks with Gabe Guaman M.D. Physician Referral - 05/14/17 with Gosia Hay M.D. (MEDICAL) Academic Affairs Coordinator Referral - Please Call For Appointment with Ramy Pena M.D. Admission Information HPI (per Admitting provider): This is a 26 year old male with a PMH of anal fistula presents with diarrhea. States that for the past month, he's had trouble with the fistula. Has seen general surgery and then was referred to colo-rectal surgery. Plan was for surgical intervention on May 11. He states that he was on both Augmentin and Flagyl for the fistula and stopped it about a week ago. He presented to [facility] for the diarrhea on 05/03. Had a CT done which showed colitis and sacroiliitis. He was sent home with prednisone with a possible diagnosis of inflammatory bowel disease. He came back to the next day to drop off a stool sample. This was tested and found to be positive for C. diff. He was told to come back to the ER. Continues to have watery diarrhea. Difficult keeping things down. No nausea/vomiting. Had some chills as well. No abdominal pain. Physical Exam (per Admitting): General Appearance: no apparent distress Head: normocephalic, atraumatic Respiratory/Chest: chest non-tender, lungs clear, normal breath sounds, no respiratory distress, no accessory muscle use Cardiovascular: regular rate, rhythm, no edema, no gallop, no JVD, no murmur , normal peripheral pulses Abdomen/GI: non tender, soft, + abnormal bowel sounds (hyperactive bowel sounds) Back: + pertinent finding (+tenderness to palpation, lower back b/l) Extremities/Musculoskelatal: normal inspection, no calf tenderness, normal capillary refill, no pedal edema, normal range of motion Neurologic/Psych: no motor/sensory deficits, alert, normal mood/affect Skin: normal color Lymphatic: no adenopathy Hospital Course C. 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 vancomycin form [facility] with no cost to him as hospital pharmacy can co -ordinate with [facility] and will cover the cost of medication will need out pt follow up with GI in 6-8 weeks for colonoscopic evaluation r/o IBD [facility] office will contact pt Anal Fistula Schedule for anorectal fistula resection at [facility] on May 11Sunday pt is asked to update surgery at [place] regarding recent episode of C diff colitis surgery is re scheduled for C diff infection Anemia Hbg stable L knee effusion Denies any trauma or injury Xray of knee showed moderate-sized left knee joint effusion. S/P Left Knee aspiration yesterday by Dr. Pedraza Synovial WBC 13K, consistent mostly for inflammatory Synovial gram stain no growth so far per orthopedics possible inflammatory arthritis cont Tylenol /NSAID PRN wt bearing as tolerated with Crutches -follow up with Ortho in 1-2 weeks TESSA wrap as needed for comfort arrangements made for out pt Rheumatology follow up DVT px on SCDs/ambulating FULL CODE Consultants: GI DISPOSITION stable to be discharged home today Medicine follow up with Dr Hay Total time spent on discharge = 40 MINS This includes examination of the patient, discharge planning, medication reconciliation, and communication with other providers. Discharge Instructions Discharge Instructions Date of Service May 08, 2017. Admission Reason for Admission: C. Difficile Colitis Discharge Discharge Diagnosis / Problem: C DIFF COLITIS Discharge Goals Goal(s): Decrease discomfort, Improve function, Improve disease control, Diagnostic testing, Therapeutic intervention Activity Recommendations Activity Limitations: resume your previous activity . Instructions / Follow-Up Instructions / Follow-Up HOSPITAL FOLLOW UP : 05/14/2017 1:00 PM Gosia Hay MD [facility] GASTROENTEROLOGY FOLLOW UP WITH DR GUAMAN IN 6-8 WEEKS ,FOR OUT PATIENT COLONOSCOPY RHEUMATOLOGY FOLLOW UP WITH DR PENA IN 2-3 WEEKS FOR LEFT KNEE PAIN / SWELLING EVALUATION FOR POSSIBLE INFLAMMATORY ARTHRITIS OFFICE WILL CALL WITH APPOINTMENT Ramy Tilley M.D. [phone] [phone] ORTHOPEDICS FOLLOW UP : Please call [facility] to make a follow-up appointment for 1-2 weeks LEFT KNEE PAIN //SWELLING -Weight bear as tolerates on left leg with crutches till evaluated by Orthopedics -For knee pain can take Tylenol or -Advil , Aleve , Motrin as needed , take with food -TESSA wrap for comfort SPECIAL CARE INSTRUCTIONS: VERY IMPORTANT TO READ AND REVIEW A. There are a few signs you need to watch for after you are home. Call [facility] if you notice any of the following : 1. Increased severe knee pain. Some pain is expected especially when you exercise. 2. Increased swelling in your leg or knee; pain or swelling of the calf muscle in either lower leg. 3. Increased erythema. 4. Shortness of breath or chest pain. Current Hospital Diet Patient's current hospital diet: Full Liquid Diet Discharge Diet Recommended Diet: Low Fiber Diet Pending Studies Studies pending at discharge: no Medical Emergencies . Who to Call and When: Medical Emergencies: If at any time you feel your situation is an emergency, please call [phone] immediately. . Non-Emergent Contact Non-Emergency issues call your: Primary Care Provider . . "Provider Documentation" section prepared by Shantell Thompson. . Flange Turner Recommendations Flange Turner Recommendations: Orthopedic recommendations: Left knee effusion -Weight bear as tolerates with crutches -PT/OT -Anti-inflammatory PRN -TESSA wrap for comfort SPECIAL CARE INSTRUCTIONS: VERY IMPORTANT TO READ AND REVIEW A. There are a few signs you need to watch for after you are home. Call [facility] if you notice any of the followin. Increased severe knee pain. Some pain is expected especially when you exercise. 2. Increased swelling in your leg or knee; pain or swelling of the calf muscle in either lower leg. 3. Increased erythema. 4. Shortness of breath or chest pain. FOLLOW UP VISIT: If appointment is not already scheduled: Please call [facility] to make a follow-up appointment for 1-2 weeks after discharge. VTE Core Measure Inpt VTE Proph given/why not?: Treatment not indicated Additional Copies To Gosia Hay M.D. (MEDICAL)
== END 2017-05-09 13:45 | disposition home or self-care (01) | DRG 373 ==
LOC: C.EDB 15:47 → C.MED 20:00 → UNDOADMIN 20:00 → ENRESERV 20:09 → C.4E 05-06 18:35
PROVIDERS: ADMIT Family Medicine; ATTEND Hospitalist
PROC: 0Y9G0ZZ Drainage of Left Knee Region, Open Approach (ICD-10-PCS; principal; 2017-05-06)
DX: A04.72 Enterocolitis due to Clostridium difficile, not specified as recurrent (principal); K60.3 Anal fistula; M25.462 Effusion, left knee; D64.9 Anemia, unspecified; M23.92 Unspecified internal derangement of left knee; Z80.9 Family history of malignant neoplasm, unspecified; Z82.49 Family history of ischemic heart disease and other diseases of the circulatory system; Z88.2 Allergy status to sulfonamides

== ENCOUNTER 2017-07-10 19:56 | Emergency (ER) | payer OTHER ==
[~2017-07-10] VITALS: Ht 170.2 cm; Wt 56.5 kg
[~2017-07-10 19:56] MED LIST changes: +NF1094 PO; -PRED20TA PO; -Stool
[2017-07-10 20:03] VITALS: TEMP 37; Ht 170.2 cm; Wt 56.5 kg
--- NOTE | 2017-07-10 20:45 | EMERGENCY ROOM VISIT NOTE ---
History Report prepared by Chio: Miles Bettencourt Under the Supervision of: Dr. Valentin James M.D. First contact with patient: 20:30 Chief Complaint: PAIN (GENERALIZED) Stated Complaint: UNBEARABLE BACK PAIN, ULCERATIVE COLITIS, PAIN History of Present Illness The patient is a 26 year old white male with a past medical history of C-Diff colitis and UC who presents to the ED with a cc of worsening lower back and knee pain beginning a week ago. Patient states his symptoms have worsened over the past two day especially. He reports he is taking Tylenol, but it has not showed improvement of his symptoms. The patient notes he was supposed to start Humira, but his insurance is currently switching, so he cannot get his medication. He states he is not supposed to take Ibuprofen because it irritates his UC. Negative nausea, vomiting, diarrhea, cough, fever, chills, history of surgeries, history of kidney stones, burning with urination Source of History: patient Onset: a week ago Position: back (lower), knee (bilateral) Timing: worsening Associated Symptoms: No fevers, No chills, No cough, No nausea, No vomiting , No diarrhea Note: Denies: burning with urination Review of Systems See HPI for pertinent positives and negatives. A total of ten systems were reviewed and were otherwise negative. Past Medical & Surgical Medical Problems: (1) C. difficile colitis (2) No significant past medical history (3) Ulcerative colitis Surgical Problems: (1) No significant past surgical history Family History FH: cancer FH: heart disease FH: hypertension Social History Smoking Status: Never Smoker Alcohol Use: occasionally Drug Use: none Marital Status: in relationship Housing Status: lives with significant other Occupation Status: employed Current/Historical Medications Scheduled Dicyclomine Hcl (Bentyl), 10 MG PO TID Scheduled PRN Acetaminophen (Tylenol), 1,000 MG PO Q6H PRN for Pain Tramadol (Ultram), 50 MG PO Q8H PRN for Pain Allergies Coded Allergies: Sulfa Antibiotics (Verified Allergy, Unknown, hives and swelling, 05/08/17 ) Physical Exam Vital Signs Date Time Temp Pulse Resp B/P (MAP) Pulse Ox O2 Delivery O2 Flow Rate FiO2 07/11/17 00:05 85 18 123/71 98 Room Air 07/10/17 22:21 88 18 114/63 98 Room Air 07/10/17 20:03 37.0 107 18 143/71 99 Room Air Physical Exam GENERAL: Awake, alert, well-appearing, NAD HENT: Normocephalic, atraumatic. EYES: Normal conjunctiva. Sclera non-icteric. NECK: Supple. No nuchal rigidity. FROM. RESPIRATORY: CTAB, no rhonchi, wheezing, crackles CARDIAC: RRR, no MRG ABDOMEN: Soft, NTND, BS+ MSK: No chest wall TTP, no LE edema. Pt complains of bilateral knee pain. No erythema. No swelling. Compartments soft. Neuro intact distally. NEURO: GCS 15, CN 2-12 intact, moves all 4s on command SKIN: No rash or jaundice noted. Medical Decision & Procedures Laboratory Results 07/10/17 21:20 Red Blood Count 5.30, Mean Corpuscular Volume 68.5, Mean Corpuscular Hemoglobin 22.1, Mean Corpuscular Hemoglobin Concent 32.2, Mean Platelet Volume 8.1, Neutrophils (%) (Auto) 66.0, Lymphocytes (%) (Auto) 24.1, Monocytes (%) (Auto) 7.6, Eosinophils (%) (Auto) 1.9, Basophils (%) (Auto) 0.2, Neutrophils # (Auto) 6.58, Lymphocytes # (Auto) 2.40, Monocytes # (Auto) 0.76, Eosinophils # (Auto) 0.19, Basophils # (Auto) 0.02 07/10/17 21:20 Test 07/10/17 21:20 07/10/17 21:45 White Blood Count 9.97 K/uL (4.8-10.8) Red Blood Count 5.30 M/uL (4.7-6.1) Hemoglobin 11.7 g/dL (14.0-18.0) Hematocrit 36.3 % (42-52) Mean Corpuscular Volume 68.5 fL (80-100) Mean Corpuscular Hemoglobin 22.1 pg (25-34) Mean Corpuscular Hemoglobin Concent 32.2 g/dl (32-36) Platelet Count 406 K/uL (130-400) Mean Platelet Volume 8.1 fL (7.4-10.4) Neutrophils (%) (Auto) 66.0 % Lymphocytes (%) (Auto) 24.1 % Monocytes (%) (Auto) 7.6 % Eosinophils (%) (Auto) 1.9 % Basophils (%) (Auto) 0.2 % Neutrophils # (Auto) 6.58 K/uL (1.4-6.5) Lymphocytes # (Auto) 2.40 K/uL (1.2-3.4) Monocytes # (Auto) 0.76 K/uL (0.11-0.59) Eosinophils # (Auto) 0.19 K/uL (0-0.5) Basophils # (Auto) 0.02 K/uL (0-0.2) RDW Standard Deviation 43.8 fL (36.4-46.3) RDW Coefficient of Variation 17.4 % (11.5-14.5) Immature Granulocyte % (Auto) 0.2 % Immature Granulocyte # (Auto) 0.02 K/uL (0.00-0.02) Hypochromasia PRESENT Microcytosis PRESENT Anion Gap 6.0 mmol/L (3-11) Est Creatinine Clear Calc Drug Dose 118.2 ml/min Estimated GFR () 145.7 Estimated GFR (Non- 125.7 BUN/Creatinine Ratio 23.1 (10-20) Calcium Level 9.3 mg/dl (8.5-10.1) Total Bilirubin 0.2 mg/dl (0.2-1) Direct Bilirubin < 0.1 mg/dl (0-0.2) Aspartate Amino Transf (AST/SGOT) 10 U/L (15-37) Alanine Aminotransferase (ALT/SGPT) 16 U/L (12-78) Alkaline Phosphatase 70 U/L (45-117) Total Protein 8.8 gm/dl (6.4-8.2) Albumin 3.4 gm/dl (3.4-5.0) Lipase 284 U/L (73-393) Influenza Type A Antigen Neg for Influ A (NEG) Influenza Type B Antigen Neg for Influ B (NEG) Urine Color YELLOW Urine Appearance CLEAR (CLEAR) Urine pH 6.0 (4.5-7.5) Urine Specific Severy 1.023 (1.000-1.030) Urine Protein NEG (NEG) Urine Glucose (UA) NEG (NEG) Urine Ketones NEG (NEG) Urine Occult Blood NEG (NEG) Urine Nitrite NEG (NEG) Urine Bilirubin NEG (NEG) Urine Urobilinogen NEG (NEG) Urine Leukocyte Esterase NEG (NEG) Laboratory results reviewed by me Medications Administered Medications (Trade) Dose Ordered Sig/Barrett Route Start Time Stop Time Status Last Admin Dose Admin Sodium Chloride 1,000 ml @ 999 mls/hr Q1H1M STAT IV 07/10/17 21:03 07/10/17 22:03 DC 07/10/17 21:17 999 MLS/HR Ketorolac Tromethamine (Toradol Inj) 30 mg NOW STAT IV 07/10/17 21:03 07/10/17 21:04 DC 07/10/17 21:17 30 MG Acetaminophen (Tylenol Tab) 1,000 mg NOW STAT PO 07/10/17 21:03 07/10/17 21:04 DC 07/10/17 21:18 1,000 MG Morphine Sulfate (MoRPHine SULFATE INJ) 6 mg NOW STAT IV 07/10/17 22:47 07/10/17 22:48 DC 07/10/17 22:53 6 MG ED Course 2056: The patient was evaluated in room B10. A complete history and physical exam was performed. 2241: I reevaluated the patient. His discomfort has improved, but it is still present. 2330: I reevaluated the patient. Discussed results and discharge instructions: he verbalized understanding and agreement. The patient is ready for discharge. Medical Decision The patient is a 26 year old white male with a past medical history of C-Diff colitis and UC who presents to the ED with a cc of worsening lower back and knee pain beginning a week ago. Differential diagnosis: Etiologies such as musculoskeletal, disc herniation, fracture, aortic disease, metastatic disease, cord compression, discitis, infection, renal colic, gastrointestinal, acute exacerbation of chronic back pain, sciatica, cauda equina, as well as others were entertained. Patient was seen and evaluated the bedside. Patient did complain of some mild low back pain. Patient did have some mild discomfort. Patient denied any urinary symptoms. No recent trauma. Patient did complain of some bilateral knee pain. There were no deficits noted distally and the patient did not have any erythema or swelling or calor. Patient did have blood work that was completed and given his prior history of ulcerative colitis there may be an element of some autoimmune disease. Patient's blood work was fairly unremarkable. Chronic anemia. Denies blood in stool. Patient was feeling improved after pain medication. Patient was deemed suitable for outpatient follow-up treatment at this time. Patient was given strict follow-up, discharge , and return precautions. All questions were answered. Patient was deemed suitable for outpatient follow-up at this time. Patient agreed with the plan of care and was safely discharged home. The chart was completed utilizing [employer] Speech voice recognition software. Grammatical errors, random word insertions, pronoun errors, and incomplete sentences are an occasional consequence of this system due to software limitations, ambient noise, and hardware issues. Any formal questions or concerns about the content, text, or information contained within the body of this dictation should be directly addressed to the physician for clarification. Medication Reconcilliation Current Medication List: was personally reviewed by me Blood Pressure Screening Patient's blood pressure: Normal blood pressure Blood pressure disposition: Did not require urgent referral Impression Primary Impression: Joint pain Additional Impression: Back pain Scribe Attestation The scribe's documentation has been prepared under my direction and personally reviewed by me in its entirety. I confirm that the note above accurately reflects all work, treatment, procedures, and medical decision making performed by me. Departure Information Dispostion Home / Self-Care Prescriptions Tramadol (Ultram) 50 Mg Tab 50 MG PO Q8H Y for Pain, #12 TAB Prov: Valentin James M.D. 07/10/17 Dicyclomine Hcl (BENTYL) 10 Mg Cap 10 MG PO TID for 7 Days, #21 CAP Prov: Valentin James M.D. 07/10/17 Referrals Gosia Hay M.D. (MEDICAL) (PCP) Forms HOME CARE DOCUMENTATION FORM, IMPORTANT VISIT INFORMATION, WORK / SCHOOL INSTRUCTIONS Patient Instructions Abdominal Pain - HIMC, Back Pain Relieve, Colitis Ulcerative, Colitis Ulcerative Lifestyle, [facility] Additional Instructions Please return to the emergency department if you have worsening or recurrent symptoms not amenable to at-home treatment. Please call for a follow-up appointment with her primary care physician. Please take your medications as prescribed. If you have other concerns and/or complaints please feel free to also call your primary care physician's office or return the ED for further evaluation, management, and treatment. You were found to have an elevated blood pressure today (>120 sytolic or >90 diastolic). Per medicare guidelines, you need to follow up with this blood pressure screening with your Primary Care Physician (PCP). For a new PCP call [phone]. You received narcotic or benzodiazepene medication while in the emergency room today. This is an addictive medication that may cause drowziness as well as constipation. Do not drive, operate heavy machinery, or drink alcohol under the influence of this medication. You may take tylenol 1000 mg every 6 hours as needed for pain. You may take the Bentyl to see if it helps you. He may also try to take the tramadol however he should take Tylenol first. Please be warned that the medication may make you drowsy and should not be used if he require your full attention. Take your medications as prescribed. You have been examined and treated today on an emergency basis only. This is not a substitute for, or an effort to provide, complete comprehensive medical care. It is impossible to recognize and treat all injuries or illnesses in a single emergency department visit. It is therefore important that you follow up closely with [facility], your PCP, and/or your specialist(s). Call as soon as possible for an appointment. Thank you for your time and consideration. I look forward to speaking with you again soon. Please don't hesitate to call us if you have any questions. Problem Qualifiers Primary Impression: Joint pain Joint pain location: knee Laterality: bilateral Qualified Codes: M25.561 - Pain in right knee; M25.562 - Pain in left knee Additional Impression: Back pain Back pain location: low back pain Chronicity: acute Back pain laterality: bilateral Sciatica presence: without sciatica Qualified Codes: M54.5 - Low back pain
[2017-07-10] MEDS ORDERED: SODIUM CHLORIDE 0.9% 1000ML 1,000 ML IV STA (21:03)
[2017-07-10] MEDS ORDERED: KETOROLAC TROMETHAMINE 30 MG/ML VIAL IV STA (21:03)
[2017-07-10] MEDS ORDERED: ACETAMINOPHEN 500 MG TAB PO STA (21:03)
[2017-07-10] MEDS ORDERED: ACET-1256 PO (21:17)
[2017-07-10 21:45] LABS: BASO % 0.2 %; BASO ABS # 0.02 K/uL (0-0.2); EOS % 1.9 %; EOS ABS # 0.19 K/uL (0-0.5); HEMATOCRIT 36.3 % (42-52); HEMOGLOBIN 11.7 g/dL (14.0-18.0); IG# 0.02 K/uL (0.00-0.02); LYMPH % 24.1 %; MEAN CELL VOLUME 68.5 fL (80-100); MEAN CORPUSCULAR HEMOGLOBIN 22.1 pg (25-34); MEAN CORPUSCULAR HGB CONC 32.2 g/dl (32-36); MEAN PLATELET VOLUME 8.1 fL (7.4-10.4); MONO % 7.6 %; MONO ABS # 0.76 K/uL (0.11-0.59); NEUT ABS # 6.58 K/uL (1.4-6.5); PLATELET COUNT 406 K/uL (130-400); RED CELL DISTRIBUTION WIDTH CV 17.4 % (11.5-14.5); RED CELL DISTRIBUTION WIDTH SD 43.8 fL (36.4-46.3); WHITE BLOOD COUNT 9.97 K/uL (4.8-10.8)
[2017-07-10 21:58] LABS: INFLUENZA B ANTIGEN Neg for Influ B (NEG)
[2017-07-10 22:03] LABS: ALBUMIN 3.4 gm/dl (3.4-5.0); ALT/SGPT 16 U/L (12-78); BLOOD UREA NITROGEN 17 mg/dl (7-18); CALCIUM 9.3 mg/dl (8.5-10.1); CARBON DIOXIDE 27 mmol/L (21-32); CREATININE 0.75 mg/dl (0.60-1.40); GLUCOSE 97 mg/dl (70-99); LIPASE 284 U/L (73-393); POTASSIUM 3.6 mmol/L (3.5-5.1); SODIUM 138 mmol/L (136-145)
[2017-07-10 22:06] LABS: ALKALINE PHOSPHATASE 70 U/L (45-117); AST/SGOT 10 U/L (15-37); TOTAL PROTEIN 8.8 gm/dl (6.4-8.2)
[2017-07-10] MEDS ORDERED: MoRPHine SULFATE 10 MG/ML CARP/VIAL IV STA (22:47)
[2017-07-10] MEDS ORDERED: DICY10CA55 PO (23:34)
[2017-07-10] MEDS ORDERED: TRAM-10 PO (23:34)
[2017-07-11 00:05] VITALS: BP 123/71; PULSE 85; O2SAT 98
== END 2017-07-11 00:03 | disposition home or self-care (01) ==
LOC: C.EDB 19:57
DX: M25.561 Pain in right knee (principal); M54.5 Low back pain; K51.90 Ulcerative colitis, unspecified, without complications; Z80.9 Family history of malignant neoplasm, unspecified; Z82.49 Family history of ischemic heart disease and other diseases of the circulatory system

== ENCOUNTER 2024-03-21 18:31 | Observation (INO) ==
--- NOTE | 2024-03-21 18:42 | Emergency Department Note ---
Impression & Plan Incarcerated incisional hernia, Abdominal pain ED Provider Note NAME: DAWIT SOMMERS AGE: 33 SEX: M : 1990 ARRIVES VIA: Walk-In INFORMANT: Patient, significant other ED PROVIDER(S): Valentin James MD CHIEF COMPLAINT: Abdominal pain, outpatient referral MEDICAL DECISION MAKING: Patient presents due to concern for abdominal pain and outpatient referral for Simon's hernia. IV was established and blood work is obtained. I did message Dr. Lucio who is on-call for general surgery about the patient's outpatient CT finding since it was in the [facility] system. Patient's blood work shows a normal white count H&H and platelet count. The patient's kidney function is unremarkable with normal electrolytes and LFTs. Urinalysis negative for blood or infection. The patient did receive IV morphine. I did speak to the on-call general surgeon who did evaluate the patient and the patient was taken the OR. Discussion w/ other healthcare providers: Dr. Lucio general surgery Prior /Outside records reviewed: None Differential diagnosis: Appendicitis, testicular torsion, UTI, diverticulitis, obstruction, renal colic, mesenteric adenitis, enteririts, PUD, pancreatitis, biliary pathology, hernia, volvulus, constipation, as well as other pathologies were considered. Diagnostics, as interpreted by me: ECG: None Cardiac monitoring: An order was placed for continuous cardiac monitoring. The monitor shows a rate of 85 with sinus rhythm. Patient was placed on pulse oximetry Medical decision rules: None Imaging studies: I reviewed the patient's outpatient CT report which showed an impression of small Simon's hernia at the umbilicus involving a short segment of small bowel and this was a CT of the abdomen pelvis with IV and without oral contrast HPI: Patient presents due to concern for abdominal pain. 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 The patient states that he did follow-up at [facility] today did have an outpatient CT scan and was told to present here if he developed any worsening pain. Patient states that his pain is worse with palpation. No issues with defecation or urination no blood in the stools. The patient states that he is diffusely tender most prominent in the mid abdomen. Patient denies any nausea vomiting or fever. PAST MEDICAL HISTORY: See Below PAST SURGICAL HISTORY: See Below SOCIAL HISTORY: See Below HOME MEDICATIONS: See Below ALLERGIES: See Below VITALS: See Below PHYSICAL EXAMINATION: GENERAL: NAD, non-toxic. EYE EXAM: Normal conjunctiva. PERRL, no anisocoria and EOM's grossly intact w/o pain. OROPHARYNX: Moist mucus membranes, grossly normal dentition. NECK: Trachea midline, no stridor. LUNGS: Clear to auscultation. Normal chest wall mechanics. HEART: NSR, no MRG. ABDOMEN: Abdomen soft, diffusely tender most prominent in the mid abdomen, no masses, positive guarding. Back: No CVA TTP. SKIN: No rashes and no bruising. UPPER EXTREMITIES: Upper extremities are grossly normal. LOWER EXTREMITIES: Grossly normal, no edema. NEURO EXAM: A&O x3, cranial nerves II-XII grossly intact, normal speech, moves all 4 extremities. Past Med/Surg History Problem List (Updated 03/21/24 @ 20:40 by Valentin James MD) Abdominal pain (Acute) Incarcerated incisional hernia (Acute) Encounter for pre-operative examination Acute thoracic back pain (Acute) Acute upper abdominal pain (Acute) Atypical chest pain (Acute) Acute appendicitis (Acute) Acute appendicitis No significant past surgical history Back pain (Acute) Influenza-like symptoms (Acute) Bronchitis (Acute) Insect bite (Acute) Left hand pain (Acute) Low back pain (Acute) Spasm of back muscles (Acute) Rectal pain (Acute) Colitis (Acute) Knee pain (Acute) Medical History C. difficile colitis Sacroiliitis Ulcerative colitis Surgical History History of laparoscopic appendectomy (08/29/23) Laparoscopic Appendectomy - Raymon Hood DO Family History Other No pertinent family history in first degree relatives Social History Smoking Status: Never smoker Preferred Language: Yemeni Visual Impairment: No Limitations Feels Safe at Home: Yes Allergies Allergies Allergy/AdvReac Type Severity Reaction Status Date / Time Sulfa (Sulfonamide Allergy Intermediate hives and Verified 09/12/23 09:29 Antibiotics) swelling Home Meds Home Medications Medication Instructions Recorded Confirmed cariprazine 1.5 mg capsule 1.5 mg PO DAILY 09/12/23 03/19/24 (Vraylar) adalimumab-aqvh 40 mg/0.8 mL 40 mg subcut .EVERY 14 DAYS 03/19/24 03/19/24 subcutaneous pen injector (Yusimry(CF) Pen) topiramate 200 mg tablet 200 mg PO UD 03/19/24 03/19/24 Results & Data (ED) Vital Signs Vital Signs - 24 hr 03/21/24 18:35 03/21/24 19:08 03/21/24 19:12 Temperature 36.5 C Temperature Source Temporal Artery Scan Pulse Rate 71 Pulse Rate [Apical] 78 Pulse Rhythm Pulse Strength [Apical] Normal Respiratory Rate 19 Respiratory Effort / Characteristics Non-Labored Spontaneous Respiratory Depth Normal Blood Pressure Blood Pressure [Left Arm] 120/71 Blood Pressure Mean [Left Arm] 87 Pulse Oximetry 97 Oxygen Delivery Method Room Air Sepsis Recent Fever Within 48 Hours No Sepsis New/Unexplained Change in Mental Status N/A Sepsis Action Taken by Nursing No Action Required 03/21/24 19:14 03/21/24 20:08 Temperature Temperature Source Pulse Rate 69 84 Pulse Rate [Apical] Pulse Rhythm Regular Pulse Strength [Apical] Respiratory Rate 18 Respiratory Effort / Characteristics Respiratory Depth Blood Pressure 120/74 Blood Pressure [Left Arm] Blood Pressure Mean [Left Arm] Pulse Oximetry 95 99 Oxygen Delivery Method Room Air Room Air Sepsis Recent Fever Within 48 Hours Sepsis New/Unexplained Change in Mental Status Sepsis Action Taken by Care Home Medications Current Medication List: was personally reviewed by me Laboratory Data Attestation: I reviewed the patient's lab results. 03/21/24 19:05 03/21/24 19:05 Lab Results 03/21/24 Range/Units 19:05 WBC 8.78 (4.8-10.8) K/ul RBC 5.55 (4.70-6.10) M/uL Hgb 15.3 (14.0-18.0) g/dl Hct 44.8 (42.0-52.0) % MCV 80.7 (80.0-100.0) fL MCH 27.6 (25.0-34.0) pg MCHC 34.2 (32.0-36.0) g/dL RDW Std Deviation 36.8 (36.4-46.3) fL RDW Coeff of Nickie 12.8 (11.5-14.5) % Plt Count 248 (130-400) K/uL MPV 8.7 L (9.4-12.4) fL Immature Gran % (Auto) 0.1 % Neut % (Auto) 52.5 % Lymph % (Auto) 36.8 % [place] % (Auto) 7.9 % Eos % (Auto) 2.4 % Baso % (Auto) 0.3 % Neut # (Auto) 4.61 (1.40-6.50) K/uL Lymph # (Auto) 3.23 (1.20-3.40) K/uL [place] # (Auto) 0.69 H (0.11-0.59) K/uL Eos # (Auto) 0.21 (0.00-0.50) K/uL Baso # (Auto) 0.03 (0.00-0.20) K/uL Immature Gran # (Auto) 0.01 (0.01-0.20) K/uL Sodium 139 (136-145) mmol/L Potassium 3.9 (3.5-5.1) mmol/L Chloride 106 (98-107) mmol/L Carbon Dioxide 26 (21-32) mmol/L Anion Gap 7 (3-11) BUN 16 (6-23) mg/dl Creatinine 0.82 (0.6-1.4) mg/dl Est Cr Clr Drug Dosing 118.7 ml/min eGFR 118.21 BUN/Creatinine Ratio 19.5 (10-20) Glucose 89 (70-99(Fasting)) mg/dl Calcium 9.6 (8.6-10.3) mg/dl Total Bilirubin 0.5 (0.2-1.0) mg/dl AST 29 (13-39) U/L ALT 45 (7-52) U/L Alkaline Phosphatase 67 (34-104) U/L Total Protein 8.0 (6.0-8.3) gm/dl Albumin 4.4 (3.4-5.0) gm/dl Globulin 3.6 (2.5-4.0) gm/dl Albumin/Globulin Ratio 1.2 (0.9-2) Lipase 25 (11-82) U/L Urine Color Yellow Urine Appearance Clear (Clear) Urine pH 5.5 (4.5-7.5) Ur Specific [place] > 1.045 H (1.000-1.030) Urine Protein Negative (Negative) Urine Glucose (UA) Negative (Negative) Urine Ketones Negative (Negative) Urine Blood Negative (Negative) Urine Nitrite Negative (Negative) Urine Bilirubin Negative (Negative) Urine Urobilinogen Negative (Negative) Ur Leukocyte Esterase Negative (Negative) Administered Medications Discontinued Medications Morphine Sulfate (Morphine Sulfate 4 Mg/Ml 1 Ml Carp\Vial) 4 mg IV NOW STA Stop: 03/21/24 18:51 Last Admin: 03/21/24 19:10 Dose: 4 mg Documented By: GGG Discharge Plan Visit Data Chief Complaint: Abdominal Pain Stated Complaint: ABDOMINAL PAIN, HERNIA IN LOWER BOWEL ED Provider: Valentin James Discharge Problem: Incarcerated incisional hernia, Abdominal pain Patient Disposition: Still a Patient Discharge Instructions Interventions: ED Discharge Assessment Last Done: 03/21/24 20:08 Discharge Problem: Abdominal pain Qualifiers: Abdominal location: unspecified location Qualified Code(s): R10.9 - Unspecified abdominal pain
[2024-03-21] MEDS: MoRPHine SULFATE 4 MG/ML 1 ML CARP\\VIAL IV STA (19:10)
[2024-03-21 19:20] LABS: Appearance Urine Clear (Clear); Bilirubin Urine Negative (Negative); Blood Urine Negative (Negative); Color Urine Yellow; Glucose Urine UA Negative (Negative); Ketones Urine Negative (Negative); Leukocyte Esterase Urine Negative (Negative); Nitrite Urine Negative (Negative); Protein Urine Negative (Negative); Specific Gravity Urine > 1.045 (1.000-1.030); Urobilinogen Urine Negative (Negative); pH Urine 5.5 (4.5-7.5)
[2024-03-21 19:25] LABS: Basophils # (auto) 0.03 K/uL (0.00-0.20); Basophils % (auto) 0.3 %; Eosinophils # (auto) 0.21 K/uL (0.00-0.50); Eosinophils % (auto) 2.4 %; Hematocrit (blood only) 44.8 % (42.0-52.0); Hemoglobin 15.3 g/dl (14.0-18.0); Immature Granulocytes # (auto) 0.01 K/uL (0.01-0.20); Immature Granulocytes % (auto) 0.1 %; Lymphocytes # (auto) 3.23 K/uL (1.20-3.40); Lymphocytes % (auto) 36.8 %; Mean Corpuscular Hemoglobin 27.6 pg (25.0-34.0); Mean Corpuscular Hgb Conc 34.2 g/dL (32.0-36.0); Mean Corpuscular Volume 80.7 fL (80.0-100.0); Mean Platelet Volume 8.7 fL (9.4-12.4); Monocytes # (auto) 0.69 K/uL (0.11-0.59); Monocytes % (auto) 7.9 %; Neutrophils # (auto) 4.61 K/uL (1.40-6.50); Neutrophils % (auto) 52.5 %; Platelet Count 248 K/uL (130-400); RDW Coefficient of Variation 12.8 % (11.5-14.5); RDW Standard Deviation 36.8 fL (36.4-46.3); Red Blood Count 5.55 M/uL (4.70-6.10); White Blood Count 8.78 K/ul (4.8-10.8)
[2024-03-21 19:40] LABS: Albumin Globulin Ratio 1.2 (0.9-2); Albumin Level 4.4 gm/dl (3.4-5.0); BUN Creatinine Ratio 19.5 (10-20); Bilirubin,Total 0.5 mg/dl (0.2-1.0); Calcium 9.6 mg/dl (8.6-10.3); Creatinine Clr Calc Pharmacy 118.7 ml/min; Globulin 3.6 gm/dl (2.5-4.0); Potassium 3.9 mmol/L (3.5-5.1)
--- NOTE | 2024-03-21 20:06 | Anesthesiology Consultation ---
Date of Service March 21, 2024 Assessment & Plan (1) Encounter for pre-operative examination: Chart Review Chart Review: Patient NOT seen in Pre Admission Testing emergent procedure Consults Requested none History Surgery Operation Date: 03/21/24 21:45 Proposed Procedures p Exploratory Laparotomy - Nick Lucio MD Height/Weight Height: 5 ft 7 in Weight: 78.4 kg Allergies Allergy/AdvReac Type Severity Reaction Status Date / Time Sulfa (Sulfonamide Allergy Intermediate hives and Verified 09/12/23 09:29 Antibiotics) swelling Medications Home Medications Medication Instructions Recorded Confirmed Last Taken cariprazine 1.5 mg capsule 1.5 mg PO DAILY 09/12/23 03/19/24 Unknown (Vraylar) adalimumab-aqvh 40 mg/0.8 mL 40 mg subcut .EVERY 14 DAYS 03/19/24 03/19/24 Unknown subcutaneous pen injector (Yusimry(CF) Pen) topiramate 200 mg tablet 200 mg PO UD 03/19/24 03/19/24 Unknown Past Medical History Medical History C. difficile colitis Sacroiliitis Ulcerative colitis Past Family History Family History Other No pertinent family history in first degree relatives Past Surgical History Surgical History History of laparoscopic appendectomy (08/29/23) Laparoscopic Appendectomy - Raymon Hood DO Social History Smoking Status: Never smoker Physical Exam Vital Signs Last Vital Signs Temp 97.7 F 03/21/24 18:35 Pulse 69 03/21/24 19:14 Resp 19 03/21/24 19:12 BP 120/71 03/21/24 19:12 Pulse Ox 95 03/21/24 19:14 O2 Del Method Room Air 03/21/24 19:14 Testing Laboratory Results 03/21/24 19:05 03/21/24 19:05 Urine Color Yellow 03/21/24 19:05 Urine Appearance Clear (Clear) 03/21/24 19:05 Urine pH 5.5 (4.5-7.5) 03/21/24 19:05 Ur Specific [place] > 1.045 (1.000-1.030) H 03/21/24 19:05 Urine Protein Negative (Negative) 03/21/24 19:05 Urine Glucose (UA) Negative (Negative) 03/21/24 19:05 Urine Ketones Negative (Negative) 03/21/24 19:05 Urine Nitrite Negative (Negative) 03/21/24 19:05 Ur Leukocyte Esterase Negative (Negative) 03/21/24 19:05
--- NOTE | 2024-03-21 20:11 | History & Physical Report ---
Date of Service March 21, 2024 Assessment & Plan (1) Incarcerated incisional hernia: Plan: 33-year-old presents with incarcerated incisional hernia containing a loop of bowel. Attempted reduction in the emergency department was not successful. I discussed with him the risks and benefits of an open exploratory laparotomy with hernia repair and possible bowel resection. All his questions were answered. Consent has been obtained. Will take him to the operating room at the earliest convenience. History of Present Illness Primary Care Provider: Effie Pierce MD 33-year-old man with a history of laparoscopic appendectomy earlier this year presents with severe pain in his umbilicus. This has been present for 2 days. He denies fevers or chills. Outside CT scan demonstrates a loop of bowel contained within umbilical hernia. Allergies Allergy/AdvReac Type Severity Reaction Status Date / Time Sulfa (Sulfonamide Allergy Intermediate hives and Verified 09/12/23 09:29 Antibiotics) swelling Home Medications Medication Instructions Recorded Confirmed Type cariprazine 1.5 mg capsule 1.5 mg PO DAILY 09/12/23 03/19/24 History (Vraylar) adalimumab-aqvh 40 mg/0.8 mL 40 mg subcut .EVERY 14 DAYS 03/19/24 03/19/24 History subcutaneous pen injector (Yusimry(CF) Pen) topiramate 200 mg tablet 200 mg PO UD 03/19/24 03/19/24 History Past Med/Surg History Problem List (Updated 03/21/24 @ 20:11 by Nick Lucio MD) Incarcerated incisional hernia Encounter for pre-operative examination Acute thoracic back pain (Acute) Acute upper abdominal pain (Acute) Atypical chest pain (Acute) Acute appendicitis (Acute) Acute appendicitis No significant past surgical history Back pain (Acute) Influenza-like symptoms (Acute) Bronchitis (Acute) Insect bite (Acute) Left hand pain (Acute) Low back pain (Acute) Spasm of back muscles (Acute) Rectal pain (Acute) Colitis (Acute) Knee pain (Acute) Medical History C. difficile colitis Sacroiliitis Ulcerative colitis Surgical History History of laparoscopic appendectomy (08/29/23) Laparoscopic Appendectomy - Raymon Hood DO Family History Other No pertinent family history in first degree relatives Social History Smoking Status: Never smoker Preferred Language: Sinhala Visual Impairment: No Limitations Feels Safe at Home: Yes Review of Systems Review of Systems: All systems reviewed & are unremarkable except as noted in HPI & below Physical Exam Constitutional: WD/WN, vitals as above Eyes: PERRL, conjunctivae normal, anicteric sclerae Neck: trachea midline, no thyromegaly Respiratory: normal respiratory effort, lungs clear to auscultation Cardiovascular: RRR, no murmur, no edema Gastrointestinal (Abdomen): Inspection/Auscultation: abdomen normal to inspection; abdomen not distended Percussion/Palpation: + abdomen tender ( Exquisitely tender at umbilicus) and abdomen soft; no guarding and abdomen not rigid Skin: no rashes, warm and dry Psychiatric: A+Ox3, euthymic affect Results & Data Results & Data Vital Signs (Past 12 Hours) Vital Signs Temp Pulse Pulse Resp BP Pulse Ox O2 Del Method 03/21/24 19:14 69 95 Room Air 03/21/24 19:12 78 19 120/71 97 Room Air 03/21/24 19:08 71 03/21/24 18:35 36.5 C Laboratory Results 03/21/24 Range/Units 19:05 WBC 8.78 (4.8-10.8) K/ul RBC 5.55 (4.70-6.10) M/uL Hgb 15.3 (14.0-18.0) g/dl Hct 44.8 (42.0-52.0) % MCV 80.7 (80.0-100.0) fL MCH 27.6 (25.0-34.0) pg MCHC 34.2 (32.0-36.0) g/dL RDW Std Deviation 36.8 (36.4-46.3) fL RDW Coeff of Nickie 12.8 (11.5-14.5) % Plt Count 248 (130-400) K/uL MPV 8.7 L (9.4-12.4) fL Immature Gran % (Auto) 0.1 % Neut % (Auto) 52.5 % Lymph % (Auto) 36.8 % [place] % (Auto) 7.9 % Eos % (Auto) 2.4 % Baso % (Auto) 0.3 % Neut # (Auto) 4.61 (1.40-6.50) K/uL Lymph # (Auto) 3.23 (1.20-3.40) K/uL [place] # (Auto) 0.69 H (0.11-0.59) K/uL Eos # (Auto) 0.21 (0.00-0.50) K/uL Baso # (Auto) 0.03 (0.00-0.20) K/uL Immature Gran # (Auto) 0.01 (0.01-0.20) K/uL Sodium 139 (136-145) mmol/L Potassium 3.9 (3.5-5.1) mmol/L Chloride 106 (98-107) mmol/L Carbon Dioxide 26 (21-32) mmol/L Anion Gap 7 (3-11) BUN 16 (6-23) mg/dl Creatinine 0.82 (0.6-1.4) mg/dl Est Cr Clr Drug Dosing 118.7 ml/min eGFR 118.21 BUN/Creatinine Ratio 19.5 (10-20) Glucose 89 (70-99(Fasting)) mg/dl Calcium 9.6 (8.6-10.3) mg/dl Total Bilirubin 0.5 (0.2-1.0) mg/dl AST 29 (13-39) U/L ALT 45 (7-52) U/L Alkaline Phosphatase 67 (34-104) U/L Total Protein 8.0 (6.0-8.3) gm/dl Albumin 4.4 (3.4-5.0) gm/dl Globulin 3.6 (2.5-4.0) gm/dl Albumin/Globulin Ratio 1.2 (0.9-2) Lipase 25 (11-82) U/L Urine Color Yellow Urine Appearance Clear (Clear) Urine pH 5.5 (4.5-7.5) Ur Specific [place] > 1.045 H (1.000-1.030) Urine Protein Negative (Negative) Urine Glucose (UA) Negative (Negative) Urine Ketones Negative (Negative) Urine Blood Negative (Negative) Urine Nitrite Negative (Negative) Urine Bilirubin Negative (Negative) Urine Urobilinogen Negative (Negative) Ur Leukocyte Esterase Negative (Negative)
[2024-03-21] MEDS ORDERED: LIDOCAINE 2% 2 ML VIAL/AMP(20MG/ML) INFIL ONE (20:28)
[2024-03-21] MEDS ORDERED: NEOSTIGMINE METHYLSULFATE 1 MG/ML 10ML VIAL ONE (20:28)
[2024-03-21] MEDS ORDERED: PROPOFOL IV EMULSION 10 MG/ML 20 ML VIAL IV ONE (20:28)
[2024-03-21] MEDS ORDERED: ROCURONIUM BROMIDE 10 MG/ML 5 ML VIAL IV ONE (20:28)
[2024-03-21] MEDS ORDERED: GLYCOPYRROLATE 0.2 MG/ML VIAL ONE (20:28)
[2024-03-21] MEDS ORDERED: ONDANSETRON INJ 2 MG/ML 2 ML VIAL ONE (20:28)
[2024-03-21] MEDS ORDERED: MIDAZOLAM HCL 1 MG/ML 2ML VIAL ONE (20:28)
[2024-03-21] MEDS ORDERED: fentaNYL citrate PF 100 MCG/2 ML VIAL ONE (20:28)
[2024-03-21] MEDS ORDERED: DEXAMETHASONE SOD INJ 4 MG/ML VIAL ONE (20:28)
[2024-03-21] MEDS: cefOXitin 2,000 MG in DEXTROSE 5 % MINI-B 50 ML IV ONE (20:45)
[2024-03-21] MEDS: cefOXitin SOD 1,000 MG VIAL ONE (20:58)
[2024-03-21] MEDS ORDERED: SUGAMMADEX SODIUM 200 MG/2 ML VIAL IV ONE (21:08)
--- NOTE | 2024-03-21 21:14 | Post Operative Brief Note ---
Immediate Post Op Note Date of Surgery March 21, 2024 Pre & Post Diagnosis Operation Date: 03/21/24 21:45 Pre-Op Diagnosis: Incarcerated incisional hernia Post-Op Diagnosis: Incarcerated incisional hernia I identified the patient and participated in the time-out.: Yes Procedure Operation Date: 03/21/24 21:45 Actual Procedures p Exploratory Laparotomy(Not Applicable) - Nick Lucio MD Surgeon Nick Lucio MD Equity Holder None Estimated Blood Loss 5 Findings Consistent with Post-Op Diagnosis incisional/umbilical hernia, bowel had reduced, the bowel was run and no ischemic or threatened bowel was identified.
--- NOTE | 2024-03-21 21:17 | Operative Report ---
Post Operative Report Pre & Post Diagnosis Operation Date: 03/21/24 21:45 Pre-Op Diagnosis: Incarcerated incisional hernia Post-Op Diagnosis: Incarcerated incisional hernia I identified the patient and participated in the time-out.: Yes Procedure Operation Date: 03/21/24 21:45 Actual Procedures p Exploratory Laparotomy(Not Applicable) - Nick Lucio MD Surgeon Nick Lucio MD Ski Technician None Estimated Blood Loss 5 Findings Consistent with Post-Op Diagnosis Umbilical/incisional hernia; no ischemic or threatened bowel Specimens none Drains none Anesthesia Type General Complications none Description of Procedure patient was taken the operating room, placed supine on the operating table. A timeout was performed, perioperative antibiotics were administered, SCD boots were placed. After adequate anesthesia and analgesia was obtained, the area was prepped and draped in the normal sterile fashion. Midline incision was made centered around the umbilicus and was carried to the subcutaneous tissue and subsequently the fascia. The fascia was opened above the level of the umbilicus with the umbilical hernia. The incision was opened down around the level of the hernia. No bowel was identified within the hernia sac. The incision was opened to its fullest extent. There is a bridge of fascia that was excised. The fascia was cleared and the umbilical stalk was detached, exposing more fascia. The bowel was then run. It was run from the terminal ileum back to the jejunum. There was no identified area of ischemic or threatened bowel. The bowel was replaced into the abdominal cavity. The fascia was then reapproximated with 0 Prolene suture in a running fashion. The umbilical stalk was reattached with 3-0 Vicryl suture. The skin was closed with surgical clips. Dressings were applied. He tolerated the procedure without complication was transferred in stable condition to the PACU. All instrument needle and sponge counts were correct at the end of the case. I attest to the content of the Intraoperative Record and any orders documented therein. Any exceptions are noted below.
[2024-03-21] MEDS ORDERED: ATROPINE SULFATE 0.1 MG/ML 10ML SYR IV PRN (21:33)
[2024-03-21] MEDS ORDERED: ONDANSETRON INJ 2 MG/ML 2 ML VIAL IV PRN ×2 (21:33→22:38)
[2024-03-21] MEDS ORDERED: ePHEDrine sulfate 50 MG/ML AMP IV PRN (21:33)
[2024-03-21] MEDS: fentaNYL citrate PF 100 MCG/2 ML VIAL IV PRN (21:39)
[2024-03-21] MEDS ORDERED: PROMETHAZINE 12.5 MG/50.5 ML BAG IV PRN (22:38)
[2024-03-21] MEDS ORDERED: diphenhydrAMINE Capsule 25 MG CAP PO PRN (22:38)
[2024-03-21] MEDS ORDERED: MoRPHine SULFATE 2 MG/ML CARP IV PRN (22:38)
--- NOTE | 2024-03-21 23:25 | Anesthesiology Progress Note ---
Date of Service March 21, 2024 Anesthesia Post Procedure Vital Signs Vital Signs: Temp Pulse Pulse Pulse Resp BP BP 03/21/24 23:17 98.1 F 76 16 124/79 03/21/24 22:58 97.9 F 77 16 126/83 03/21/24 22:20 98.2 F 77 16 131/82 03/21/24 22:10 82 17 137/83 03/21/24 21:55 98.1 F 67 17 125/83 03/21/24 21:45 81 13 129/79 03/21/24 21:35 70 22 145/85 H 03/21/24 21:27 96.8 F L 87 14 160/80 H 03/21/24 20:08 84 18 120/74 03/21/24 19:14 69 03/21/24 19:12 78 19 120/71 03/21/24 19:08 71 03/21/24 18:35 97.7 F Pulse Ox O2 Del Method O2 Flow Rate 03/21/24 23:17 94 Nasal Cannula 2 03/21/24 22:58 96 Nasal Cannula 2 03/21/24 22:20 96 Room Air 03/21/24 22:10 97 Nasal Cannula 2 03/21/24 21:55 93 Nasal Cannula 2 03/21/24 21:45 96 Oxymask 6 03/21/24 21:35 97 Oxymask 10 03/21/24 21:27 93 Oxymask 10 03/21/24 20:08 99 Room Air 03/21/24 19:14 95 Room Air 03/21/24 19:12 97 Room Air 03/21/24 19:08 03/21/24 18:35 Pain Intensity Abdomen: Pain Intensity: 5 Transfer of Care Handoff Completed per policy Notes Mental Status: alert / awake / arousable and participated in evaluation Patient Amnestic to Procedure: Yes Nausea / Vomiting: adequately controlled Pain: adequately controlled Airway Patency, RR, SpO2: stable & adequate BP & HR: stable & adequate Hydration State: stable & adequate Anesthetic Complications: no major complications apparent and Pt Satisfied with anesthetic care
[2024-03-21] MEDS: oxyCODONE/ACETAMINOPHEN 5mg/325mg TAB PO PRN (23:36)
[2024-03-22 00:24] VITALS: RESP 16; O2SAT 97
[2024-03-22 01:16] VITALS: TEMP 97.7
[2024-03-22] MEDS: fentaNYL citrate PF 100 MCG/2 ML VIAL ONE (03:10)
[2024-03-22] MEDS: KETOROLAC 30 MG/ML VIAL IV PRN (05:15)
[2024-03-22 07:26] VITALS: BP 132/74; PULSE 70
[2024-03-22] MEDS: oxyCODONE/ACETAMINOPHEN 5mg/325mg TAB PO PRN (07:34)
--- NOTE | 2024-03-22 12:07 | Discharge Summary ---
Date of Service March 22, 2024 Admission HPI Per Admitting Provider 33-year-old man with a history of laparoscopic appendectomy earlier this year presents with severe pain in his umbilicus. This has been present for 2 days. He denies fevers or chills. Outside CT scan demonstrates a loop of bowel contained within umbilical hernia. Principal Diagnosis incarcerated incisional hernia Discharge Data Allergies Allergy/AdvReac Type Severity Reaction Status Date / Time Sulfa (Sulfonamide Allergy Intermediate hives and Verified 09/12/23 09:29 Antibiotics) swelling Consultations 03/21/24 19:18 ED Decision to Admit Stat Procedures Performed Operation Date: 03/21/24 21:45 Actual Procedures p Exploratory Laparotomy(Not Applicable) - Nick Lucio MD Hospital Course (1) Incarcerated incisional hernia: 33-year-old gentleman was seen in the emergency department and taken to the operating room immediately for an exploratory laparotomy for an incarcerated incisional hernia. The details of this are dictated in a separate operative note. Postoperatively he was transferred in stable condition to the PACU and subsequently to the floor. Pain control was maintained with IV and subsequently p.o. pain medication. His diet was advanced as tolerated throughout the hospitalization. Courage to ambulate. DVT prophylaxis with early ambulation, SCD boots, Lovenox. By the date of discharge, he was tolerating regular diet, not requiring IV pain medications, and he was discharged home in stable condition. He will follow-up in clinic in 2 weeks. Total Time Total Time Spent Total Time Spent (In Minutes): 30 minutes Discharge Plan Discharge Items Patient Disposition: Home - Self-Care Reason For Visit: POSTOP INCARCERATED INCISIONAL HERNIA Discharge Diagnosis: incarcerated incisional hernia Activity: Per Instructions section Lifting: No more than 10 pounds Sexual Activity: Wait until after follow-up appointment Exercise/Sports: Wait until after follow-up appointment Non-emergency contact: Surgeon Call non-emergency contact if: you have any medication questions, your symptoms worsen, your pain is not controlled, your pain is worsening, your pain is unusual for you, your temperature is above 101.5, your wound has increased redness, your wound has increased drainage and your wound pain has increased Follow-up/Referrals: Effie Pierce MD [Primary Care Provider] - Diet: Regular Addtl Attending Provider Instructions: ACTIVITY RECOMMENDATIONS: * Walk as much as possible. * No heavy lifting (>10 lbs.) for 6 weeks. SPECIAL CARE INSTRUCTIONS: * Ice to hernia repair site on and off until bedtime tonight. * May shower in 24 hours. Let water run over area and pat dry. * Leave kath in place. These will be removed in clinic in 1 week. * Call the surgeon's office with any questions or concerns - (ex. temperature higher than 101 degrees F, excessive bleeding or pain). MEDICATIONS: Resume previous medications unless instructed otherwise by your surgeon. * Ibuprofen 600 mg every 6 hours with food * Percocet 1 every 4 hours, as needed for pain FOLLOW UP VISIT: If not already scheduled, please call the office to schedule a two week follow- up appointment. Office number Pending Studies at Discharge: No Stand-Alone Forms: My [facility] [employer], Smoking Cessation Medications and DC Order Prescriptions: New oxycodone-acetaminophen [Percocet] 5-325 mg tablet 1 tab PO Q6H PRN (Reason: pain) Qty: 10 0RF Continued Vraylar 1.5 mg capsule 1.5 mg PO DAILY topiramate 200 mg tablet 200 mg PO UD Rx Instructions: Patient takes the medication but isnt sure of his dose Yusimry(CF) Pen 40 mg/0.8 mL pen injector 40 mg SUBCUT .EVERY 14 DAYS Discharge Orders: Discharge Order (Routine); Ordered 03/22/24 Ordered By: Nick Lucio Admission Data Admit Date/Time: 03/21/24 21:22 Attending Provider: Nick Lucio Admit Provider: Nick Lucio Primary Care Provider: Effie Pierce Other Providers: Nick Lucio
--- OUTSIDE RECORDS SUMMARY | 2024-03-22 12:09 | External Medical Summary | Summary of Care ---
Author Name Unknown Organization [facility] Address [address] [place] [address] Phone [phone] Care Team Providers Care Elephant Tamer Name Role Phone Effie Pierce MD Primary Care Provid er Reason for Referral * Evaluate & Treat - Unlimited Visits (Within 30 days (routine)) - Authorized Specialty Diagnoses / Procedures Referred By Gennaro finch Referred To Contact General Surgery Diagnoses Umbilical hernia without obstruction and without gangrene Kyung Raymundo PA-C [address] [place] [address] Referral ID Status Reason Start Date Expiration Date Visits Requested Visits Authorized [id number] Authorized Specialty Services Required 4 999 999 Question Answer Referral Priority Within 30 days (routine) [facility]? [facility] What condition is the patient being seen for? General Surgery Conditions What condition is the patient being seen for? Hernia (excluding Hiatal) Reason for Visit * Reason Onset Date Comments Test Results 03/21/2024 Encounter Details Date Type Department Care Team ([facility] st Contact Info) Description [facility] [facility] [address] [facility] [place] [id number] Kyung Raymundo PA-C [address] [facility] [place] [id number] Test Results Allergies Active Allergy Reactions Criticality Noted Date Comments Sulfa Antibiotics Hives High 03/21/1999 documented as of this encounter (statuses as of 03/21/2024) Medications Medication Sig Dispensed Refills Start Date End Date Status traZODone HCl 100 MG Oral Tablet (Desyrel) 09/21/2021 Act lashonda ARIPiprazole 15 MG Oral Tablet (Abilify) Take 1 Tablet by mouth at bedtime. 07/20/2022 Active Yusimry 40 MG/0.8ML Subcutaneous Solution Pen-injector (Adalimumab-aqvh)Indic ations:Ulcerative pancolitis with fistula (HCC) Inject 40 mg under the skin every 14 days. 1.6 mL 2 01/27/2024 Active Famotidine 20 MG Oral Tablet (Pepcid)Indications:Na usea and vomiting, unspecified vomiting type Take 1 Tablet by mouth in the morning and 1 Tablet before bedtime. 60 Tablet 03/21/2024 Active Hospital, Clinic, or Other Facility Administered Medication Ordered Dose Route Frequency Start Date End Date Status sodium chloride 0.9 % flush/inj 10 mL 10 mL IV PUSH ONCE 03/21/2024 03/22/2024 Active documented as of this encounter (statuses as of 03/21/2024) Active Problems Problem Noted Date Diagnosed Date Immunosuppression 12/05/2021 Ulcerative pancolitis with fistula 02/25/2018 documented as of this encounter (statuses as of 03/21/2024) Resolved Problems Problem Noted Date Diagnosed Date Resolved Date Encounter for surveillance of abnormal nevi 10/10/2018 12/02/2021 Overview: Mildly atypical nevus (left posterior thigh) History of Clostridium difficile colitis 06/15/2017 12/02/2021 Bilateral knee effusions 05/17/2017 Serologic abnormality 05/17/20172017 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 difficile colitis 06/11/2016 018 Spasm of muscle 05/25/2015 04/12/2017 Midline thoracic back pain 05/25/2015 1 06/12/2016 Viral URI with cough 05/19/2014 017 Dermatitis due to plant 10/31/201307/2016 VIRAL GASTROENTERITIS 07/19/20102016 Nausea with vomiting 07/19/2010 017 PAIN IN LIMB, LEFT FOOT 12/31/200607/2016 Joint pain, foot 12/31/2006 04/12/2017 DERMATITIS DUE TO PLANT 02/20/200607/2016 ADVANCE DIRECTIVE INFORMATION 04/10/2005 06/15/2017 Overview: Not applicable (under age of 18) ACUTE URI NOS 06/22/2000 07/30/2008 Overview: Resolved per Benign Acute Dxs Protocol #3 ACUTE PHARYNGITIS 06/22/2000 07/30/2008 Overview: Resolved per Benign Acute Dxs Protocol #3 Chronic rhinitis 06/22/2000 12/02/2021 Varicella without complication 04/12/2017 documented as of this encounter (statuses as of 03/21/2024) Immunizations Name Administration Dates Next Due DTP Vaccine 12/03/1990, 0,1989,1989 Seasonal Influenza Virus Vac cine, Unspecified Formulation 02/23/2018 Seasonal Influenza, Quadriva lent, No Preserve, IM 02/23/2018 TDAP (age 10 and older)(Boostrix) 04/12/2017,09/2005 documented as of this encounter Social History Tobacco Use Types Packs/Day Years Used Date Smoking Tobacco: Never Smokeless Tobacco: Never Comments:non smoking househo ld Alcohol Use Standard Drinks/Week Comments Yes 0 (1 standard drink = 0.6 oz pur e alcohol) Occasional PHQ-2 Answer Date Recorded PHQ Adult Total Score 0 11/19/2023 Hunger Vital Sign Answer Date Recorded Within the past 12 months, y ou worried that your food would run out before you got the money to buy more. Never true 10/17/19 24 Within the past 12 months, t he food you bought just didn't last and you didn't have money to get more. Never true 10/17/2023 Childcare Answer Date Recorded Do you feel overwhelmed with taking care of a child, family member or friend? No 10/17/2023 Does your family need help f inding childcare? (Household - for ages 0-17 years) Not on file 10/17/2023 Clothing Answer Date Recorded Have you been unable to get clothing when it was really needed? Yes 10/17/2023 Is your family able to get c lothes or diapers when needed? (Household - for ages 0-17 years) Not on file 10/17/2023 Personal Safety Answer Date Recorded Do you feel unsafe or have concerns for your saf ety? No 10/17/2023 Do you have concerns for you r family's safety? (Household - for ages 0-17 years) Not on file 10/17/2023 Utilities Answer Date Recorded Do you have trouble paying y our heating, water, or electric bill? No 10/17/2023 Is your family able to pay t he heat, water, or electric bill? (Household - for ages 0-17 years) Not on file 10/17/2023 Does your family have access to good internet? (Household - for ages 0-17 years) Not on file 10/17/2023 Employment Status Answer Date Recorded Are you unemployed or without regular income? No 10/17/2023 Does the household have a [facility] source [facility] income? (Household - for ages 0-17 years) Not on file 10/17/2023 Social Connections Answer Date Recorded How often do you feel lonely or isolated from th ose around you? Never 10/17/2023 Financial Resource Strain Answer Date R ecorded Do you have any trouble payi ng for your medications, or do you think you might in the future? No 10/17/2023 Does your family have troubl e paying for medicine? (Household - for ages 0-17 years) Not on file 10/17/2023 Transportation Needs Answer Date Record ed READ ONLY Do you have troubl e getting a ride to medical visits or work? Never True 10/17/2023 Does your family have a hard time getting a ride to doctors visits? (Household - for ages 0-17 years) Not on file 10/17/2023 Has lack of transportation k ept you from medical appointments, meetings, work, or from getting things needed for daily living? Check all that apply. (Adult - for ages 18 years and over) Not on file 10/17/2023 Do you (or your family) have trouble finding or paying for a ride (transportation)? (Household - for ages 0-17 years) Not on file 10/17/2023 Housing Stability Answer Date Recorded Do you currently live in a s helter or have no steady place to sleep at night? No 10/17/2023 READ ONLY Do you think you a re at risk of becoming homeless? No 10/17/2023 Does your family worry about paying for your home or becoming homeless? (Household - for ages 0-17 years) Not on file 0 10/17/2023 Are you homeless or worried that you might be in the future? (Adult - for ages 18 years and over) Not on file Are you (or your family) doris eless or worried that you might be in the future? (Household - for ages 0-17 years) Not on file Food Insecurity Answer Date Recorded Do you need food for this week? No 10/17/2023 Are you able to get enough f ood for your family? (Household - for ages 0-17 years) Not on file 10/17/2023 Does your family need food t his week? (Household - for ages 0-17 years) Not on file 10/17/2023 Do you always have enough fo od for your family? (Household - for ages 0-17 years) Not on file 10/17/2023 Sex and Gender Information Value Date Recorded Sex Assigned at Male 08/26/2019 10:58 AM EDT Gender Identity Male 08/26/2019 10:58 AM EDT Sexual Orientation Straight 08/26/2019 10 :58 AM EDT Job Start Date Occupation Industry Not on file Not on file Not on file documented as of this encounter Miscellaneous Notes * Telephone Encounter - Tamia Lopez LPN - 03/21/2024 5:04 PM EDT Contacted patient and made aware, he verbalized understanding. * Telephone Encounter - Kyung Raymundo PA-C - 03/21/2024 4:55 PM EDT Gallbladder is fine - he does have a hernia - no evidence of obstruction but intestine is involved If pain becomes constant or worse, er Otherwise, needs to reconnect with the surgeon Umbilical hernia without obstruction and without gangrene (Primary) - SURGERY REFERRAL OP Kyung Raymundo PA-C 03/21/2024 4:57 PM * Telephone Encounter - Barbara Gomes LPN - 03/21/2024 4:22 PM EDT Patient calling back. Check in on the status of the message below. Called and spoke with Becky in office, Kyung has been bouncing between patient rooms and has nothad a minute to review. She is placing a note on Kyung's desk to review patient's message. * Telephone Encounter - Barbara Gomes LPN - 03/21/2024 3:02 PM EDT Patient calling in stating that he saw Kyung today and he had a STAT CT done, Results are Finalized in chart. Asking for Kyung to review the results. Spoke with Becky in office, she is going to make Kyung aware of the message. documented in this encounter Plan of Treatment Scheduled Referrals Name Type Priority Associated Diagnoses Orde r Schedule SURGERY REFERRAL OP Referral Within 30 da ys (routine) Umbilical hernia without obstruction and without gangrene Ordered: 03/21/2024 Health Maintenance Due Date Last Done Comments Influenza Vaccine (FLU shot) (#1) 2024 02/23/2018, 02/23/2018 Depression Screening 11/18/2024 11/19/2023, 06/15/19 18 DTap/Tdap Vaccines (8 - Td or Tdap) 04/12/2027 04/12/2017, 09/12/2005, 08/30/1994, Additional history exists Colonoscopy 2034 07/20/2023, 02/2024, 10/14/2018, Additional history exists RETIRED - COLONOSCOPY-EVERY 2 YRS AGES 18-100 Discontinued 07/20/2023, 07/20/2023, 10/14/2018, Additional history exists COVID-19 Vaccine Discontinued HIV Screening Discontinued HPV (Gardasil) Vaccine Aged Out No lo nger eligible based on patient's age to complete this topic Hepatitis C Screening Discontinued MENINGOCOCCAL (MENACTRA/MENVEO) Aged Out No longer eligible based on patient's age to complete this topic Pneumococcal Vaccine: Pediatrics (0 to 5 Years) and At-Risk Patients (6 to 64 Years) Aged Out No longer eligible based on patient's age to complete this topic documented as of this encounter Medical Devices Not on filedocumented as of this encounter Visit Diagnoses Diagnosis Umbilical hernia without obstruction and without gangrene- Primary documented in this encounter Care Teams Elephant Tamer Relationship Specialty Start Date End Date Effie Pierce MD [address] [place] [address] PCP - General Family Medicine 08/11/22 documented as of this encounter
--- OUTSIDE RECORDS SUMMARY | 2024-03-22 12:09 | External Medical Summary | Summary of Care ---
Author Name Unknown Organization [facility] Address [address] [place] [address] Phone [phone] Care Team Providers Care Vamp Creaser Name Role Phone Effie Pierce MD Primary Care Provid er Reason for Referral * Precert (Within 24 hrs (call dept; emergent)) - Authorized Specialty Diagnoses / Procedures Referred By Gennaro finch Referred To Contact Radiology Diagnoses RUQ abdominal pain H/O umbilical hernia repair Skin pustule Abdominal swelling Procedures CT ABD/PELVIS W IV CONTRAST - WO ORAL CONTRAST Kyung Raymundo PA-C [address] [place] [address] Referral ID Status Reason Start Date Expiration Date V isits Requested Visits Authorized [id number] Authorized 03/21/2024 999 999 Reason for Visit * Reason Comments Emergency Department Follow-Up Was seen for chest pain, has been having more heartburn, chest pain yesterday while hunting Encounter Details Date Type Department Care Team (Late st Contact Info) Description 03/21/2024 9:00 AM EDT Office Visit [facility] Michael Storey [address] [place] [phone] Kyung Raymundo PA-C [address] [facility] [place] [id number] Nausea and vomiting, unspecified vomiting type*; RUQ abdominal pain; H/O umbilical hernia repair; Skin pustule; Abdominal swelling Allergies Active Allergy Reactions Criticality Noted Date [...] Tablet before bedtime. 60 Tablet 03/21/2024 Active documented as of this encounter (statuses [...] 05/14/2017 06/15/2017 Knee effusion, left 05/14/2017 06/15/19 18 Acute pain of both knees 05/14/201710/2017 Inflammation [...] No 10/17/2023 Does the household have a re gular source of income? (Household - for ages [...] on file documented as of this encounter Last Filed Vital Signs Vital Sign Reading Time Taken Comments Blood Pressure 112/64 03/21/2024 9:05 AM EDT Pulse 68 03/21/2024 9:05 AM EDT Temperature 36.4 C (97.5 F) 03/21/2024 9:05 AM ED T Respiratory Rate 16 03/21/2024 9:05 AM EDT Oxygen Saturation - - Inhaled Oxygen Concentration - - Weight 78.9 kg (174 lb) 03/21/2024 9:05 AM EDT Height 171.5 cm (5' 7.5") 03/21/2024 9:05 AM EDT Body Mass Index 26.85 03/21/2024 9:05 AM EDT documented in this encounter Progress Notes * Kyung Raymundo PA-C - 03/21/2024 9:01 AM EDT Images from the original note were not included. History of Present Illness Piotr Mcgill is a 33 year old male that presents for Emergency Department Follow-Up (Was seen for chest pain, has been having more heartburn, chest pain yesterday while hunting ) Here for er f.u Was to [facility] on for lower chest / upper abdominal pain Pain was radiating around to his R shoulder blade They did a cardiac work up but patient was not scanned He does still have his gall bladder Has pain right now in his cva region Almost like he feels dehydrated and cramping Urine was clear He has some abd pain in the region of his prior hernia repair - repair was done in September When this area was examined, it was very point tender Cxr normal Labs did not reveal any abnormalities He is still very uncomfortable Known UC Bowels are always variable Appetite is good UC has been controlled No fever or chills. Past Medical History: Diagnosis Date C. difficile colitis 04/2017 Ulcerative colitis with fistula (HCC) Varicella without complication Yusimry 40 MG/0.8ML Subcutaneous Solution Pen-injector (Adalimumab-aqvh) ARIPiprazole 15 MG Oral Tablet (Abilify) traZODone HCl 100 MG Oral Tablet (Desyrel) Physical Exam Vitals: 03/21/24 0905 Temp: 36.4 C (97.5 F) Pulse: 68 Resp: 16 BP: 112/64 BMI: 26.83 BP Readings from Last 3 Encounters: 03/21/24 112/64 11/19/23 110/60 07/20/23 116/72 Wt Readings from Last 3 Encounters: 03/21/24 78.9 kg (174 lb) 11/19/23 77.7 kg (171 lb 6.4 oz) 07/20/23 74.8 kg (165 lb) BMI Readings from Last 3 Encounters: 03/21/24 26.85 kg/m 11/19/23 26.45 kg/m 07/20/23 25.46 kg/m Ht Readings from Last 3 Encounters: 03/21/24 1.715 m (5' 7.5") 11/19/23 1.715 m (5' 7.5") 07/20/23 1.715 m (5' 7.5") General: alert, healthy, and no distress Head: Normocephalic, No masses, lesions, tenderness or abnormalities Heart: regular rate & rhythm, no murmur, no gallops, S-1 normal, and S-2 normal Lungs: chest symmetric with normal AP diameter, no chest deformities noted, no chest wall tenderness, lungs clear to auscultation Abdomen: abdomen soft, normal bowel sounds, no masses or organomegaly, and + Barry's sign, ttp at the ventral region superior to the umbilicus, this area is tender and asymmetrical - R sided prominence with tenderness and firmness Back: back symmetric, no curvature, no costovertebral angle tenderness, range of motion is normal, some R sided rhomboid ttp Extremities: less than 2 second capillary refill, no joint deformities, effusion, or inflammation Skin: skin color, texture, turgor are normal, around the incision site he has 2 small vesicles - this area is tender Assessment and Plan Nausea and vomiting, unspecified vomiting type (Primary) - Famotidine 20 MG Oral Tablet (Pepcid); Take 1 Tablet by mouth in the morning and 1 Tablet before bedtime. RUQ abdominal pain - CT ABD/PELVIS W IV CONTRAST - WO ORAL CONTRAST; Future; Expected date: 03/21/2024 H/O umbilical hernia repair - CT ABD/PELVIS W IV CONTRAST - WO ORAL CONTRAST; Future; Expected date: 03/21/2024 Skin pustule - CT ABD/PELVIS W IV CONTRAST - WO ORAL CONTRAST; Future; Expected date: 03/21/2024 Abdominal swelling - CT ABD/PELVIS W IV CONTRAST - WO ORAL CONTRAST; Future; Expected date: 03/21/2024 Wrap-Up Rev er note No idea what he was not scanned. He has upper quadrant pain that radiates around to his R shoulder blade and he still has a gall bladder. He also has recent hernia repair and tenderness that is new and different around that region. Patient needs ct abd pelvis - could have 2 issues - could have gb issues, could have infection vs incarcerated hernia. Needs imaging. No criteria for admission Time: I spent a total of 20-29 minutes (exact time 26 mins) on the date of service in preparation, delivery, and documentation of the care provided to Piotr Mcgill excluding any time spent in the performance of separately billed services. Kyung Raymundo PA-C 03/21/2024 9:26 AM documented in this encounter Nursing Notes * Becky Valladares LPN - 03/21/2024 9:05 AM EDT The patient has been properly identified by confirmation of name and date of . Chief Complaint Patient presents with Emergency Department Follow-Up Was seen for chest pain, has been having more heartburn, chest pain yesterday while hunting documented in this encounter Plan of Treatment Health Maintenance Due Date Last Done Comments [...] Not on filedocumented as of this encounter Results * CT ABD/PELVIS W IV CONTRAST - WO ORAL CONTRAST (03/21/2024 1:51 PM EDT) Anatomical Region Laterality Modality Body, Abdomen, Pelvis Computed T omography 03/21/2024 2:04 PM EDT Impressions 03/21/2024 2:02 PM EDT IMPRESSION Small Simon's hernia at the umbilicus involving a short segment of small bowel. Narrative 03/21/2024 2:02 PM EDT EXAM EXAM: CT ABD/PELVIS W IV CONTRAST - WO ORAL CONTRAST DATE and TIME: 03/21/2024 1:51 pm HISTORY CLINICAL INFORMATION: RUQ pain radiating around to shoulder blade, n/v, umbilical pain following hernia repair wth asymmetrical swelling and vesicles TECHNIQUE Oral Contrast: Oral contrast was not administered. IV Contrast: IV Contrast used COMPARISON None. FINDINGS LOWER CHEST: HEART(visualized): Unremarkable LUNG BASES: Unremarkable ABDOMEN/PELVIS: LINES AND DEVICES: None LIVER: Unremarkable BILE DUCTS: Unremarkable GALLBLADDER: Unremarkable PANCREAS: Unremarkable SPLEEN: Unremarkable ADRENALS: Unremarkable KIDNEYS/URETERS: Unremarkable BLADDER: Unremarkable BOWEL: Unremarkable LYMPH NODES: Unremarkable VESSELS: Unremarkable REPRODUCTIVE ORGANS: Unremarkable PERITONEUM/RETROPERITONEUM: Unremarkable ABDOMINAL WALL/SOFT TISSUES: Small Simon's hernia at the umbilicus is seen involving an underlying loop of small bowel (image 85 series 2). BONES: Unremarkable Procedure Note Lizbeth Narayanan MD - 03/21/2024 EXAM EXAM: CT ABD/PELVIS W IV CONTRAST - WO ORAL CONTRAST DATE and TIME: 03/21/2024 1:51 pm HISTORY CLINICAL INFORMATION: RUQ pain radiating around to shoulder blade, n/v,umbilical pain following hernia repair wth asymmetrical swelling andvesicles TECHNIQUE Oral Contrast: Oral contrast was not administered. IV Contrast: IV Contrast used COMPARISON None. FINDINGS LOWER CHEST: HEART(visualized): Unremarkable LUNG BASES: Unremarkable ABDOMEN/PELVIS: LINES AND DEVICES: None LIVER: Unremarkable BILE DUCTS: Unremarkable GALLBLADDER: Unremarkable PANCREAS: Unremarkable SPLEEN: Unremarkable ADRENALS: Unremarkable KIDNEYS/URETERS: Unremarkable BLADDER: Unremarkable BOWEL: Unremarkable LYMPH NODES: Unremarkable VESSELS: Unremarkable REPRODUCTIVE ORGANS: Unremarkable PERITONEUM/RETROPERITONEUM: Unremarkable ABDOMINAL WALL/SOFT TISSUES: Small Simon's hernia at the umbilicus isseen involving an underlying loop of small bowel (image 85 series 2). BONES: Unremarkable IMPRESSION IMPRESSION Small Simon's hernia at the umbilicus involving a short segment of smallbowel. Kyung Raymundo PA-C RAD CT documented in this encounter Visit Diagnoses Diagnosis Nausea and vomiting, unspecified vomiting type- Primary RUQ abdominal pain Abdominal pain, right upper quadrant H/O umbilical hernia repair Personal history of surgery to other organs Skin pustule Unspecified local infection of skin and subcutaneous tissue Abdominal swelling Abdominal or pelvic swelling, mass or lump, unspecified site RUQ abdominal pain Abdominal pain, right upper quadrant H/O umbilical hernia repair Personal history of surgery to other organs Skin pustule Unspecified local infection of skin and subcutaneous tissue Abdominal swelling Abdominal or pelvic swelling, mass or lump, unspecified site documented in this encounter Care Teams Vamp Creaser Relationship Specialty Start Date End Date Effie Pierce MD [address] [place] [address] PCP - General Family Medicine 08/11/22 documented as of this encounter
== END 2024-03-22 12:53 | disposition home or self-care (01) ==
LOC: ED 18:31 → OR 20:08 → 3W 20:08 → OR 20:59